=== PATIENT | male | born 1950 | race Caucasian/White ===

== ENCOUNTER 2018-04-08 20:25 | Emergency (ER) | payer OTHER, MEDICARE ==
[~2018-04-08] VITALS: Ht 172.7 cm; Wt 99.8 kg
[~2018-04-08 20:25] MED LIST: ESCI20TA PO; GABA-533 PO; GLUXR500 PO; HYDR25TA4 PO; LORA2TAB PO; LUBI24CA5 PO; MECL-110 PO; METO-442 PO; MORP15TA PO; OXCA600T5 PO; OXYC-133 PO
[2018-04-08 20:30] VITALS: BP_SYST 124
[2018-04-08] MEDS ORDERED: NACL 0.9% 1,000 ML IV ONE (21:00)
[2018-04-08] MEDS ORDERED: LORazepam 2 MG/ML VIAL (FOR ER USE) IVP ONE (21:00)
[2018-04-08 21:18] LABS: BASOPHILS # (AUTO) 0.2 K/uL (0.0-0.2); BASOPHILS % (AUTO) 1.4 % (0.0-2.0); EOSINOPHILS % (AUTO) 0.2 % (0.0-4.0); LYMPHOCYTES # (AUTO) 3.7 K/uL (1.0-5.5); LYMPHOCYTES % (AUTO) 20.9 % (20.5-51.5); MEAN CORPUSCULAR HEMOGLOBIN 30 pg (27-31); MEAN CORPUSCULAR HGB CONC 32 % (32-36); MEAN CORPUSCULAR VOLUME 94 fL (79.0-98.0); MONOCYTES # (AUTO) 0.5 K/uL (0.0-1.0); MONOCYTES % (AUTO) 2.9 % (1.7-9.3); NEUTROPHILS # (AUTO) 13.2 K/uL (1.8-7.7); NEUTROPHILS % (AUTO) 74.6 % (40.0-70.0); PLATELET COUNT (AUTO) 371 K/uL (130-430); RED BLOOD CELL COUNT(AUTO) 4.99 MIL/uL (4.2-6.2); RED CELL DISTRIBUTION WIDTH 13.7 % (9.0-15.0); WHITE BLOOD COUNT (AUTO) 17.6 K/uL (4.8-10.8)
[2018-04-08 21:26] LABS: CALCIUM 9.5 mg/dL (8.4-11.0); CREATININE 1.34 mg/dL (0.55-1.30); POTASSIUM 5.5 mmol/L (3.5-5.1)
[2018-04-08 21:30] LABS: ALBUMIN 4.3 g/dL (3.4-4.8); TOTAL BILIRUBIN 0.2 mg/dL (0.0-1.0)
[2018-04-08 23:15] VITALS: BP_SYST 124
== END 2018-04-08 23:15 | disposition home or self-care (01) ==
LOC: SED 20:25
DX: J20.9 Acute bronchitis, unspecified (principal); F10.239 Alcohol dependence with withdrawal, unspecified; J02.9 Acute pharyngitis, unspecified; R07.89 Other chest pain; E11.40 Type 2 diabetes mellitus with diabetic neuropathy, unspecified; I10 Essential (primary) hypertension; Z79.899 Other long term (current) drug therapy; Z87.01 Personal history of pneumonia (recurrent)
CPT/HCPCS: 36415; 71045; 80053; 85025; 87040; 96365; 96366; 96375; 99285; J1956; J2060

== ENCOUNTER 2018-05-25 13:52 | Inpatient (IN) | payer OTHER, MEDICARE ==
[~2018-05-25] VITALS: Ht 170.2 cm; Wt 93.0 kg
[2018-05-25 14:01] VITALS: BP_SYST 152
--- NOTE | 2018-05-25 14:10 | NUR ---
Placed in room 05 . Placed on engine monitor, blood pressure machine and pulse oximeter. To gown for exam. Side rails up.
--- NOTE | 2018-05-25 14:25 | NUR ---
Patient presents with son. Son states patient has had multiple falls possibly related to his ETOH intoxication. Patient has bruise to left flank that is indented in comparisson with surrounding tissue. Also has an abrasion to left forehead. Son did not witness a fall causing wither of these injuries. States he caught his father from falling several times over the past few days. States his father is on blood thinners, unk which kind or for what reason. Patient cannot recall his birthday, the president's name, or the date today. Dr Conteh made aware. IV started in left 5th area of hand, 22g. flushed. blood drawn by lab.
--- NOTE | 2018-05-25 14:30 | NUR ---
Dr Conteh at bedside to examine patient. CT HEAD, abdomen and pelvis, and CXR ordered.
--- NOTE | 2018-05-25 14:40 | NUR ---
Patient taken to CT via latha
[2018-05-25 14:48] LABS: MEAN CORPUSCULAR HGB CONC 33 % (32-36); PLATELET COUNT (AUTO) 421 K/uL (130-430)
[2018-05-25 14:54] LABS: BASOPHILS % (AUTO) 0.6 % (0.0-2.0); EOSINOPHILS % (AUTO) 0.2 % (0.0-4.0); MONOCYTES % (AUTO) 1.4 % (1.7-9.3); NEUTROPHILS % (AUTO) 81.8 % (40.0-70.0)
[2018-05-25 14:55] LABS: BASOPHILS # (AUTO) 0.1 K/uL (0.0-0.2); HEMOGLOBIN 16.3 g/dL (14.0-18.0); LYMPHOCYTES # (AUTO) 2.8 K/uL (1.0-5.5); MEAN CORPUSCULAR HEMOGLOBIN 30 pg (27-31); MEAN CORPUSCULAR VOLUME 92 fL (79.0-98.0); MONOCYTES # (AUTO) 0.2 K/uL (0.0-1.0); NEUTROPHILS # (AUTO) 14.5 K/uL (1.8-7.7); RED BLOOD CELL COUNT(AUTO) 5.41 MIL/uL (4.2-6.2); WHITE BLOOD COUNT (AUTO) 17.6 K/uL (4.8-10.8)
[2018-05-25 14:56] LABS: RED CELL DISTRIBUTION WIDTH 13.6 % (9.0-15.0)
[2018-05-25 14:59] LABS: ANION GAP 20 (5-15); CALCIUM 10.1 mg/dL (8.4-11.0); CHLORIDE 98 mmol/L (98-107); CREATININE 1.24 mg/dL (0.55-1.30); GLUCOSE 108 mg/dL (70-99); POTASSIUM 4.9 mmol/L (3.5-5.1); SODIUM SERUM 138 mmol/L (136-145); UREA NITROGEN, BLOOD 25 mg/dL (8-21)
--- NOTE | 2018-05-25 14:59 | NUR ---
patient returned from CT placed back in his room.
[2018-05-25 15:06] LABS: PROTHROMBIN TIME 10.3 SECS (9.5-12.5)
[2018-05-25 15:07] LABS: GFR AFRICAN AMERICAN 75 mL/min (>90)
[2018-05-25 15:08] LABS: ALANINE AMINOTRANSFERASE 47 U/L (12-78); ALBUMIN 4.6 g/dL (3.4-4.8); ALCOHOL, BLOOD 240 mg/dL (<10); ASPARTATE AMINOTRANSFERASE 35 U/L (10-37); TOTAL BILIRUBIN 0.2 mg/dL (0.0-1.0)
[2018-05-25] MEDS ORDERED: NS 500 ML IV ONE (15:15)
[2018-05-25] MEDS ORDERED: DIPHENHYDRAMINE INJ 50 MG/ML VIAL IVP ONE (15:15)
[2018-05-25] MEDS ORDERED: ONDANSETRON HCL 4 MG/2 ML VIAL IVP ONE (15:15)
[2018-05-25] MEDS ORDERED: LORazepam 2 MG/ML VIAL (FOR ER USE) IVP ONE (16:00)
[2018-05-25] MEDS ORDERED: cefTRIAXone 1 GM IVPB PREMIX 50 ML IV ONE (16:00)
--- NOTE | 2018-05-25 16:46 | NUR ---
# 16 FR Cantu catheter with use of sterile technique. Immediate return of 10 cc clear yellow urine noted. Bedside drainage bag placed below level of bladder. Urine sample collected and sent to lab. Pt tolerated procedure well. Patient unable to follow direction and unable toilet self.
[2018-05-25] MEDS: cefTRIAXone 1 GM IVPB PREMIX 50 ML IV SCH (17:00)
--- NOTE | 2018-05-25 17:04 | NUR ---
Patient will be admitted to care of [facility]. Admitted to Tele unit to room 132A. Belongings list completed. Summary report printed. Report given at bedside.
[2018-05-25 17:11] LABS: BARBITURATE, URINE NEGATIVE (NEG <=200); BENZODIAZEPINE, URINE NEGATIVE (NEG <=150); CANNABINOID, URINE NEGATIVE (NEG <=50); COCAINE, URINE NEGATIVE (NEG <=150); METHAMPHETAMINES SCREEN,URINE NEGATIVE (NEG <=500); OPIATE, URINE NEGATIVE (NEG <=100); PHENCYCLIDINE SCREEN,URINE NEGATIVE (NEG <=25); UR TRICYCLIC ANTIDEPRESSANTS NEGATIVE (NEG <=300); URINE AMPHETAMINE NEGATIVE (NEG <=500); URINE METHADONE NEGATIVE (NEG <=200); URINE OXYCODONE SCREEN NEGATIVE (NEG <=100); URINE PROPOXYPHENE SCREEN NEGATIVE (NEG <=300)
--- NOTE | 2018-05-25 17:13 | NUR ---
ADMISSION NOTE Received patient from ER via latha.Report received form Demetrice ER nurse. Patient admitted with diagnosis of pyelonephritis. Patient is currently drowsy. Patient oriented to hospital room, call light, toileting, pain management and safety-teach back done. Patient informed that Abbi will be his nurse and that their room number is 132-c. Personal belongings checked and Belongings List documented. Call light within reach.
[2018-05-25] MEDS: NACL 0.9% 1,000 ML IV SCH (17:28)
[2018-05-25 17:33] LABS: BILIRUBIN,URINE NEGATIVE (NEGATIVE); BLOOD, URINE NEGATIVE (NEGATIVE); CLARITY/URINE CLEAR (CLEAR); COLOR,URINE YELLOW (YELLOW); GLUCOSE,URINE NEGATIVE (NEGATIVE); KETONES,URINE 1+ (NEGATIVE); LEUKOCYTE ESTERASE ,URINE NEGATIVE (NEGATIVE); NITRITE, URINE NEGATIVE (NEGATIVE); PH,URINE 5.5 (5.0-8.0); PROTEIN URINE 1+ (NEGATIVE); UROBILINOGEN,URINE 0.2 (0.2-1.0)
--- NOTE | 2018-05-25 17:40 | NUR ---
Sepsis Protocol Note Spoke with Dr. Velazquez. Made MD aware of patient's current vital signs and labs: (164/106, 135, 100.1, 24, 95% RA), first lactic acid 6.8, WBC 17.6. MD ordered and extra bolus of 2.5 liters. Orders for Ativan 2mg and Librium 25 mg were also received at this time.
[2018-05-25 17:44] LABS: BACTERIA,URINE FEW /HPF (None Seen); RBC,URINE 0-3 /HPF (0-3); WBC,URINE 0-3 /HPF (0-3)
[2018-05-25] MEDS ORDERED: SUCR1TAB78 PO (17:45)
[2018-05-25] MEDS ORDERED: GLU500 PO (17:45)
[2018-05-25] MEDS ORDERED: OMEP20CA10 PO (17:45)
[2018-05-25] MEDS ORDERED: DULO60CA41 PO (17:45)
[2018-05-25] MEDS ORDERED: ASA81 PO (17:45)
[2018-05-25] MEDS ORDERED: ROSU10TA PO (17:45)
[2018-05-25] MEDS ORDERED: LOSA25TA3 PO (17:45)
[2018-05-25] MEDS ORDERED: GABA800T PO (17:45)
[2018-05-25] MEDS ORDERED: METO25TA3 PO (17:45)
[2018-05-25] MEDS ORDERED: BACL10TA PO (17:45)
[2018-05-25 17:49] VITALS: BP_SYST 131
[2018-05-25] MEDS ORDERED: LORazepam 2 MG/ML VIAL IVP PRN (18:00)
[2018-05-25] MEDS ORDERED: DEXTROSE 50% JECT 50 ML DISP.SYRIN IVP PRN (18:00)
[2018-05-25] MEDS ORDERED: MUPIROCIN 2% TOPICAL OINTMENT 22 GM NS PRN (18:00)
[2018-05-25] MEDS ORDERED: MAGNESIUM SULFATE 50 ML IV PRN (18:00)
[2018-05-25] MEDS ORDERED: DOCUSATE SODIUM 100 MG CAPSULE PO PRN (18:00)
[2018-05-25] MEDS ORDERED: POTASSIUM CHLORIDE 20 MEQ TAB.PRT.SR PO PRN (18:00)
[2018-05-25] MEDS ORDERED: ACETAMINOPHEN 325 MG TABLET PO PRN (18:00)
[2018-05-25] MEDS ORDERED: ONDANSETRON HCL 4 MG/2 ML VIAL IVP PRN (18:00)
[2018-05-25] MEDS ORDERED: INSULIN ASPART 100 UNITS/ML, 10 ML VIAL (NovoLOG) SUBCUT PRN (18:00)
[2018-05-25] MEDS ORDERED: LORazepam 2 MG/ML VIAL ONE (18:05)
[2018-05-25] MEDS ORDERED: NACL 0.9% 1,000 ML IV ONE (18:15)
[2018-05-25] MEDS ORDERED: METOPROLOL TARTRATE 25 MG TABLET ONE (18:27)
--- NOTE | 2018-05-25 18:32 | NUR ---
CONSULTATION PAGED/CALLED Reason for Consultation: Tachycardia Person Who was Notified: Iris Consulting Physician: Dr. Dubois Video Camera Operator Specialty: Cardio Ordering Physician: Dr. Velazquez
--- NOTE | 2018-05-25 18:50 | NUR ---
Sepsis Protocol/ Closing Note Patient is currently receiving a second bolus of NS. Endorsed to Valdemar RN to do sepsis reassessment. Patient is currently awake and confused. Bed alarm is in place and bed is in low position.
[2018-05-25] MEDS ORDERED: NACL 0.9% 2,000 ML IV SCH (19:00)
[2018-05-25] MEDS ORDERED: NS 500 ML IV SCH (19:00)
--- NOTE | 2018-05-25 19:35 | NUR ---
ROUNDS PATIENT RESTING COMFORTABLY IN BED, NOT IN DISTRESS, VITALS STABLE. DENIES ANY PAIN AND DISCOMFORT AT THIS TIME. ASSESSMENT DONE AND DOCUMENTED. SEE FLOWSHEET. NEEDS ATTENDED TO. SAFETY AND FALL PRECAUTION MEASURES IN PLACED. BED IN LOW AND LOCKED POSITION. CALL LIGHT PLACED WITHIN REACH.
[2018-05-25] MEDS: BACLOFEN 10 MG TABLET PO SCH (20:04)
[2018-05-25] MEDS: chlordiazePOXIDE HCL 25 MG CAPSULE PO SCH (20:04)
[2018-05-25] MEDS: METOPROLOL TARTRATE 25 MG TABLET PO SCH (20:06)
[2018-05-25] MEDS: HEPARIN SODIUM,PORCINE 5000 UNITS/ML VIAL SUBCUT SCH (20:08)
[2018-05-25] MEDS ORDERED: GABAPENTIN 400 MG CAPSULE PO SCH (21:00)
[2018-05-25 21:06] VITALS: BP_SYST 143
--- NOTE | 2018-05-25 21:15 | NUR ---
MEDICATION DUE MEDICATIONS GIVEN ORDERED, TOLERATED WELL. WILL CONTINUE TO MONITOR.
--- NOTE | 2018-05-26 00:10 | NUR ---
PATIENT RESTING: Patient resting quietly. No acute distress noted. Vital signs within normal range.
[2018-05-26] MEDS: NACL 0.9% 1,000 ML IV SCH ×3 (00:15→17:28)
[2018-05-26 00:18] VITALS: BP_SYST 144
--- NOTE | 2018-05-26 02:15 | NUR ---
ROUNDS PATIENT ASLEEP, VITALS STABLE, WILL CONTINUE TO MONITOR.
--- NOTE | 2018-05-26 04:15 | NUR ---
PATIENT RESTING: Patient resting quietly. No acute distress noted. Vital signs within normal range.
[2018-05-26 04:46] VITALS: BP_SYST 103
[2018-05-26 06:25] LABS: BASOPHILS # (AUTO) 0.1 K/uL (0.0-0.2); EOSINOPHILS % (AUTO) 0.4 % (0.0-4.0); HEMOGLOBIN 11.4 g/dL (14.0-18.0); LYMPHOCYTES # (AUTO) 2.3 K/uL (1.0-5.5); LYMPHOCYTES % (AUTO) 25.2 % (20.5-51.5); MEAN CORPUSCULAR HEMOGLOBIN 32 pg (27-31); MEAN CORPUSCULAR HGB CONC 34 % (32-36); MEAN CORPUSCULAR VOLUME 94 fL (79.0-98.0); MONOCYTES # (AUTO) 0.8 K/uL (0.0-1.0); MONOCYTES % (AUTO) 8.9 % (1.7-9.3); NEUTROPHILS % (AUTO) 64.5 % (40.0-70.0); PLATELET COUNT (AUTO) 261 K/uL (130-430); WHITE BLOOD COUNT (AUTO) 9.2 K/uL (4.8-10.8)
--- NOTE | 2018-05-26 06:50 | NUR ---
CLOSING NOTES PATIENT AWAKE, VITALS STABLE, DENIES ANY PAIN AND DISCOMFORT AT THIS TIME. ALL NEEDS ATTENDED TO. SAFETY AND FALL PRECAUTION MEASURES MAINTAINED. CALL LIGHT PLACED WITHIN REACH.
[2018-05-26 06:54] LABS: CALCIUM 8.4 mg/dL (8.4-11.0); CREATININE 0.81 mg/dL (0.55-1.30); POTASSIUM 4.1 mmol/L (3.5-5.1)
--- NOTE | 2018-05-26 07:50 | NUR ---
opening note patient is resting in bed, A&Ox4, patient shows some confusion will continue to monitor, assessment completed, educated correspondence school instructor light system and on pain management, patient verbalized understanding, no other needs at this time, bed at the lowest position, bed alarm on, two side rails up with seizure precautions, call light within reach, bed close to nurse station, fall and aspiration precautions in place.
--- NOTE | 2018-05-26 08:00 | NUR ---
Dr. Velazquez rounds assessed patient at bedside, will follow up with any new orders.
[2018-05-26] MEDS ORDERED: metFORMIN HCL 500 MG TABLET PO SCH (09:00)
[2018-05-26] MEDS: ASPIRIN 81 MG TAB.CHEW PO SCH (09:02)
[2018-05-26] MEDS: GABAPENTIN 300 MG CAPSULE PO SCH ×3 (09:03→20:26)
[2018-05-26] MEDS: BACLOFEN 10 MG TABLET PO SCH ×2 (09:03→20:26)
[2018-05-26] MEDS: LOSARTAN POTASSIUM 25 MG TABLET PO SCH (09:03)
[2018-05-26] MEDS: METOPROLOL TARTRATE 25 MG TABLET PO SCH ×2 (09:04→20:26)
[2018-05-26] MEDS: DULoxetine HCL 30 MG CAPSULE.DR (CYMBALTA) PO SCH (09:04)
[2018-05-26] MEDS: chlordiazePOXIDE HCL 25 MG CAPSULE PO SCH ×3 (09:05→20:26)
--- NOTE | 2018-05-26 09:05 | NUR ---
Medication patient is resting in bed, educated on medication use and side effects, patient verbalized understanding and tolerated well, no other needs at this time, bed at the lowest position, bed alarm on, two side rails up with seizure precautions, call light within reach, bed close to nurse station, fall and aspiration precautions in place.
[2018-05-26] MEDS: HEPARIN SODIUM,PORCINE 5000 UNITS/ML VIAL SUBCUT SCH ×2 (09:07→20:22)
[2018-05-26] MEDS: MORPHINE 2 MG/ML INJ. SYRINGE IVP PRN ×2 (09:39→20:25)
--- NOTE | 2018-05-26 09:51 | NUR ---
Dr. Dubois rounds assessed patient at bedside, will follow up with any new orders.
--- NOTE | 2018-05-26 10:44 | NUR ---
Echocardiogram being performed at bedside, patient is tolerating well.
[2018-05-26 10:59] LABS: CHOLESTEROL 195 mg/dL (<200); HDL CHOLESTEROL 39 mg/dL (>45); LDL CHOLESTEROL 103 mg/dL (<100); TRIGLYCERIDES 375 mg/dL (30-150)
--- NOTE | 2018-05-26 11:11 | NUR ---
Blood sugar check patient is resting in bed, blood sugar was 104 no regular insulin sliding scale needed at this time, patient verbalized understanding, no other needs at this time, bed at the lowest position, bed alarm on, two side rails up with seizure precautions, call light within reach, bed close to nurse station, fall and aspiration precautions in place.
[2018-05-26 11:16] VITALS: BP_SYST 158
[2018-05-26 12:02] VITALS: BP_SYST 139
--- NOTE | 2018-05-26 12:44 | NUR ---
IV fluids patient is resting in bed, changed IV fluid bag, IV line patent and intact, no other needs at this time, bed at the lowest position, bed alarm on, call light within reach, two side rails up with seizure precautions, bed close to nurse station, fall and aspiration precautions in place.
--- NOTE | 2018-05-26 14:30 | NUR ---
Medication patient is resting in bed, educated on medication uses and side effects, patient verbalized understanding and tolerated well, no other needs at this time, bed at the lowest position, bed alarm on , two side rails up, call light within reach, fall and aspiration precautions in place.
[2018-05-26 16:02] VITALS: BP_SYST 143
[2018-05-26] MEDS: cefTRIAXone 1 GM IVPB PREMIX 50 ML IV SCH (17:22)
--- NOTE | 2018-05-26 17:22 | NUR ---
blood sugar check patient is resting in bed, blood sugar was 110, no sliding scale insulin needed, no other needs at this time, bed at the lowest position, bed alarm on , two side rails up, call light within reach, fall and aspiration precautions in place.
--- NOTE | 2018-05-26 18:51 | NUR ---
closing note patient is resting in bed with his eyes closed, breathing easy and non-labored, all needs met for the shift, will endorse report to noc shift nurse, bed at the lowest position, bed alarm on , two side rails up with seizure precautions, call light within reach, bed close to nurse station, fall and aspiration precautions in place.
[2018-05-26 19:18] VITALS: BP_SYST 137
--- NOTE | 2018-05-26 19:18 | NUR ---
Opening Note Received bedside sbar report from dayshift RN. Patient is awake/alert/oriented, watching tv. No acute distress noted at this time. IV site noted to LH20G, saline locked and R wrist 20G, infusing NS @ 80ml/hr as ordered. No signs of redness of infiltration. Introduced myself, updated whiteboard, discussed plan of care, bed alarm activated. Bed to lowest position, 3 side rails up, call light within reach, bed alarm activated. Seizure precautions in place. Will continue to monitor patient.
--- NOTE | 2018-05-26 20:25 | NUR ---
Pain Medication Patient complains of 7/10 chronic back pain. Administered Morphine 2mg as ordered for severe pain. Will follow up to ensure effective pain management.
[2018-05-26] MEDS: ZOLPIDEM TARTRATE 5 MG TABLET PO PRN (20:26)
--- NOTE | 2018-05-26 20:34 | NUR ---
Blood Glucose : 146 (No correction needed per physician ordered sliding scale) Educated patient on signs/symptoms of hypoglycemia.
--- NOTE | 2018-05-26 22:52 | NUR ---
Rounds Patient is resting, eyes closed with no distress noted. No shortness of breath and no labored breathing. IV site is clean/dry/intact with no signs of infiltration. Bed to lowest position, 3 side rails up, call light within reach, bed alarm activated. Will continue to monitor patient.
[2018-05-27 00:47] VITALS: BP_SYST 113
--- NOTE | 2018-05-27 01:58 | NUR ---
Rounds Patient is resting comfortably with no distress noted. Respirations are equal/non-labored @ 16/min. IV site is clean/dry/intact and infusing NS @ 80ml/hr as ordered with no signs of infiltration. Bed to lowest position, 3 side rails up, call light within reach, bed alarm activated. Will continue to monitor patient.
--- NOTE | 2018-05-27 03:41 | NUR ---
Rounds Patient is still resting with his eyes closed and no acute distress is noted at this time. Respirations are non-labored and equal: 18/min. IV site is clean/dry/intact and infusing NS @ 80ml/hr as ordered with no signs of redness or infiltration at this time. Bed to lowest position, 3 side rails up, call light within reach, bed alarm activated. Will continue to monitor patient.
--- NOTE | 2018-05-27 05:21 | NUR ---
Rounds Patient is in bed, eyes closed and is easily arousable. Symmetric rise and fall of chest with respirations @ 18/min. IV site is clean/dry/intact and infusing NS @ 80ml/hr as ordered with no signs of redness or infiltration at this time. Bed to lowest position, 3 side rails up, call light within reach, bed alarm activated. Will continue to monitor patient.
--- NOTE | 2018-05-27 05:30 | NUR ---
radio tower technician currently in with patient.
[2018-05-27] MEDS: NACL 0.9% 1,000 ML IV SCH ×2 (06:02→13:26)
--- NOTE | 2018-05-27 06:06 | NUR ---
Blood Glucose : 104 (No correction needed per physician ordered sliding scale) Educated patient on signs/symptoms of hypoglycemia.
[2018-05-27 06:57] LABS: BASOPHILS % (AUTO) 0.6 % (0.0-2.0); EOSINOPHILS # (AUTO) 0.1 K/uL (0.0-0.4); EOSINOPHILS % (AUTO) 1.8 % (0.0-4.0); HEMATOCRIT 35.8 % (36-54); HEMOGLOBIN 11.9 g/dL (14.0-18.0); LYMPHOCYTES # (AUTO) 1.9 K/uL (1.0-5.5); LYMPHOCYTES % (AUTO) 27.6 % (20.5-51.5); MEAN CORPUSCULAR HEMOGLOBIN 31 pg (27-31); MEAN CORPUSCULAR HGB CONC 33 % (32-36); MEAN CORPUSCULAR VOLUME 94 fL (79.0-98.0); MONOCYTES # (AUTO) 0.4 K/uL (0.0-1.0); MONOCYTES % (AUTO) 6.6 % (1.7-9.3); NEUTROPHILS # (AUTO) 4.3 K/uL (1.8-7.7); NEUTROPHILS % (AUTO) 63.4 % (40.0-70.0); PLATELET COUNT (AUTO) 220 K/uL (130-430); RED BLOOD CELL COUNT(AUTO) 3.82 MIL/uL (4.2-6.2); RED CELL DISTRIBUTION WIDTH 12.9 % (9.0-15.0); WHITE BLOOD COUNT (AUTO) 6.7 K/uL (4.8-10.8)
--- NOTE | 2018-05-27 07:25 | NUR ---
Closing Note Gave bedside sbar report to dayshift RNErick Patient is awake/alert/oriented, using urinal. No distress noted at this time. All needs/expectations/interventions met by nightshift RN. Transfer of care successful.
[2018-05-27 07:26] LABS: CALCIUM 9.1 mg/dL (8.4-11.0); CREATININE 0.71 mg/dL (0.55-1.30); POTASSIUM 3.7 mmol/L (3.5-5.1)
[2018-05-27 07:30] VITALS: BP_SYST 147
[2018-05-27] MEDS: chlordiazePOXIDE HCL 25 MG CAPSULE PO SCH ×3 (08:32→20:11)
[2018-05-27] MEDS: GABAPENTIN 300 MG CAPSULE PO SCH ×3 (08:32→20:11)
[2018-05-27] MEDS: ASPIRIN 81 MG TAB.CHEW PO SCH (08:32)
[2018-05-27] MEDS: DULoxetine HCL 30 MG CAPSULE.DR (CYMBALTA) PO SCH (08:33)
[2018-05-27] MEDS: BACLOFEN 10 MG TABLET PO SCH ×2 (08:33→20:12)
[2018-05-27] MEDS: LOSARTAN POTASSIUM 25 MG TABLET PO SCH (08:33)
[2018-05-27] MEDS: METOPROLOL TARTRATE 25 MG TABLET PO SCH ×2 (08:33→20:11)
[2018-05-27] MEDS: MORPHINE 2 MG/ML INJ. SYRINGE IVP PRN ×3 (08:35→20:13)
[2018-05-27] MEDS: HEPARIN SODIUM,PORCINE 5000 UNITS/ML VIAL SUBCUT SCH ×2 (08:39→20:09)
--- NOTE | 2018-05-27 08:42 | NUR ---
AM NOTES Patient laying in bed awake, alert, orientedx4. No s/s of acute distress or SOB. Right and left 20g IV sites patent, intact, dressings are dry. Patient oriented to room routine, bed in lowest position, call light within reach. Seizure precautions in place.
[2018-05-27 11:39] VITALS: BP_SYST 142
--- NOTE | 2018-05-27 11:43 | NUR ---
Physical Therapy at the bedside, patient is tolerating well, patient ambulating with walker.
--- NOTE | 2018-05-27 13:38 | NUR ---
RN rounds/Pain medication patient resting in bed, IV pump alarming, replaced IVF bag, IV intact, patent and infusing well, inquired of patient if he has pain, patient complaining of lower back, educated the patient on pain medication uses and potential side effects, he verbalized understanding, no other needs at this time, bed in lowest position, three side rails up, bed alarm on, bed close to nursing station, fall, aspiration and seizure precautions in place. Addendum: 05/27/18 at 1347 by Erick Hanson RN Call light within reach.
--- NOTE | 2018-05-27 15:38 | NUR ---
RN rounds patient resting in bed, awake, denies pain, stable condition, continuing to monitor, bed in lowest position, three side rails up, bed alarm on, call light within reach, fall, seizure and aspiration precautions in place, provided with juice upon request, no other needs at this time, continuing to monitor.
[2018-05-27 16:12] VITALS: BP_SYST 138
[2018-05-27] MEDS: cefTRIAXone 1 GM IVPB PREMIX 50 ML IV SCH (16:47)
--- NOTE | 2018-05-27 17:00 | NUR ---
MEDICATION ADMINISTRATION Accucheck 137, no correction needed per physician ordered sliding scale. IVPB Rocephin hung, Right 20g IV site patent, intact, dressing is dry.
--- NOTE | 2018-05-27 18:34 | NUR ---
CLOSING NOTES Patient is awake, alert, laying in bed resting. No s/s of distress or SOB noted. No pain reported. All needs met throughout shift. Safety, fall, and seizure precautions maintained. Right 20g and left 20g IV sites patent, intact, dressing is dry. Bed in lowest position, call light within reach. Will endorse to oncoming RN.
[2018-05-27 19:17] VITALS: BP_SYST 132
--- NOTE | 2018-05-27 19:17 | NUR ---
Opening Note Received bedside sbar report from Erick robles RN. Patient is awake/alert/oriented, watching tv. No acute distress noted at this time. IV site noted to LH20G, saline locked and R wrist 20G, infusing NS @ 80ml/hr as ordered. No signs of redness of infiltration. Introduced myself, updated whiteboard, discussed plan of care, bed alarm activated. Bed to lowest position, 3 side rails up, call light within reach, bed alarm activated. Seizure precautions in place. Will continue to monitor patient.
[2018-05-27] MEDS: ZOLPIDEM TARTRATE 5 MG TABLET PO PRN (20:12)
--- NOTE | 2018-05-27 20:13 | NUR ---
Pain Medication Patient complains of 7/10 chronic back pain. Administered Morphine 2mg as ordered for severe pain. Will follow up to ensure effective pain management.
--- NOTE | 2018-05-27 20:20 | NUR ---
Blood Glucose : 104 (No correction needed per physician ordered sliding scale) Educated patient on signs/symptoms of hypoglycemia.
--- NOTE | 2018-05-27 22:11 | NUR ---
Patient attempting to get out of bed. He wants to take a walk. Educated patient on high fall risk factor regarding diagnosis and medications administered. He agreed, pushed patient via walker for a few laps around hospital floor while EARLY CHILDHOOD EDUCATION WORKER changed linens. Assisted patient safely back to bed. Will continue to monitor patient.
[2018-05-28 01:46] VITALS: BP_SYST 137
--- NOTE | 2018-05-28 02:21 | NUR ---
Patient has gotten out of bed and turned off bed alarm. Escorted patient safely back to bed and educated on his high fall risk status. He does not answer then turns over and begins snoring. Unsure if patient is sleep walking. Will continue to monitor patient.
--- NOTE | 2018-05-28 04:14 | NUR ---
IV site to left hand has been dislodged. Verified that catheter tip is fully intact.
[2018-05-28] MEDS: NACL 0.9% 1,000 ML IV SCH ×2 (05:45→20:00)
--- NOTE | 2018-05-28 05:54 | NUR ---
Blood Glucose : 112 (No correction needed per physician ordered sliding scale) Educated patient on signs/symptoms of hypoglycemia.
--- NOTE | 2018-05-28 07:09 | NUR ---
Closing Note Patient is resting No distress noted at this time. All needs/expectations/interventions met by nightshift RN. Transfer of care successful.
[2018-05-28 07:11] LABS: EOSINOPHILS # (AUTO) 0.4 K/uL (0.0-0.4); MEAN CORPUSCULAR HGB CONC 33 % (32-36); MONOCYTES # (AUTO) 0.4 K/uL (0.0-1.0); WHITE BLOOD COUNT (AUTO) 6.8 K/uL (4.8-10.8)
--- NOTE | 2018-05-28 07:47 | NUR ---
Nutrition Update Óscar Scale 16 noted. Pt admitted for pyelonephritis Diet: [facility] BMI: 33.5 kg/m2 RD to follow per nutrition care standards.
[2018-05-28 07:51] LABS: CREATININE 0.78 mg/dL (0.55-1.30)
[2018-05-28 07:54] LABS: BASOPHILS % (AUTO) 0.4 % (0.0-2.0); EOSINOPHILS % (AUTO) 5.7 % (0.0-4.0); HEMATOCRIT 35.6 % (36-54); HEMOGLOBIN 11.8 g/dL (14.0-18.0); LYMPHOCYTES % (AUTO) 30.1 % (20.5-51.5); MEAN CORPUSCULAR HEMOGLOBIN 31 pg (27-31); MEAN CORPUSCULAR VOLUME 95 fL (79.0-98.0); MONOCYTES % (AUTO) 6.4 % (1.7-9.3); NEUTROPHILS % (AUTO) 57.4 % (40.0-70.0); PLATELET COUNT (AUTO) 202 K/uL (130-430); RED BLOOD CELL COUNT(AUTO) 3.76 MIL/uL (4.2-6.2); RED CELL DISTRIBUTION WIDTH 12.9 % (9.0-15.0)
[2018-05-28 08:00] VITALS: BP_SYST 142
--- NOTE | 2018-05-28 08:00 | NUR ---
RN OPENING NOTE patient is resting on bed, open eyes. denies pain or discomfort. patient was assessed, vital signs are stable. will give the patient his blood pressure med. patient's bed at low positions and call light within reach, bed alarm is on, will continue to monitor.
[2018-05-28 08:16] LABS: POTASSIUM 4.3 mmol/L (3.5-5.1)
[2018-05-28] MEDS: DULoxetine HCL 30 MG CAPSULE.DR (CYMBALTA) PO SCH (08:29)
[2018-05-28] MEDS: ASPIRIN 81 MG TAB.CHEW PO SCH (08:29)
[2018-05-28] MEDS: GABAPENTIN 300 MG CAPSULE PO SCH ×3 (08:29→20:49)
[2018-05-28] MEDS: BACLOFEN 10 MG TABLET PO SCH ×2 (08:29→20:47)
[2018-05-28] MEDS: LOSARTAN POTASSIUM 25 MG TABLET PO SCH (08:30)
[2018-05-28] MEDS: chlordiazePOXIDE HCL 25 MG CAPSULE PO SCH ×3 (08:31→20:47)
[2018-05-28] MEDS: METOPROLOL TARTRATE 25 MG TABLET PO SCH ×2 (08:31→20:48)
[2018-05-28] MEDS: HEPARIN SODIUM,PORCINE 5000 UNITS/ML VIAL SUBCUT SCH ×2 (08:34→20:51)
--- NOTE | 2018-05-28 10:00 | NUR ---
RN NOTE patient was given his medication, patient was educated about fall prevention and his disease process.patient verbalized understanding, patient denies pain or discomfort. call light within reach and bed alarm is on. bed at low position, will continue to monitor.
--- NOTE | 2018-05-28 12:00 | NUR ---
RN NOTE patient resting on bed, denies pain or discomfort. patient blood sugar was measured to be 122 mg/dl. patient was given no coverage according to the sliding scale. patient was served his lunch. will continue to monitor.
[2018-05-28 12:05] VITALS: BP_SYST 151
[2018-05-28] MEDS: MORPHINE 2 MG/ML INJ. SYRINGE IVP PRN (13:43)
--- NOTE | 2018-05-28 14:00 | NUR ---
RN NOTE patient was downgraded to Med Surg. his tele box was removed cleaned and patient was complaining of pain in his lower legs arms and lower back due to his fibromyalgia, patient was given his prn morphine sulfate. will continue to monitor.
[2018-05-28] MEDS ORDERED: MORPHINE 4 MG/ML INJ. SYRINGE IVP PRN (14:58)
--- NOTE | 2018-05-28 15:04 | NUR ---
DC Planning: Per Dr Varela who spoke with pt. about discharging pt. to snf. The pt. refused but agreed with home health f/u care. The md. requested [facility] for continued iv Rocephin infusion for 3 more days. >> s/w Karolyn at [facility]# [phone], stated unable to accept the pt. dt no nurse to infuse IV abx. Dr Varela made aware.
--- NOTE | 2018-05-28 16:00 | NUR ---
RN NOTE patient resting on bed, alert oriented x 4, patient was visited by his family, patient denies pain or discomfort. patient was educated about his disease process and seizure precautions. patient verbalized understanding, will continue to monitor.
[2018-05-28 16:39] VITALS: BP_SYST 140
[2018-05-28] MEDS: cefTRIAXone 1 GM IVPB PREMIX 50 ML IV SCH (17:14)
--- NOTE | 2018-05-28 18:00 | NUR ---
RN CLOSING NOTE patient resting on bed, patient blood sugar was measured to be 103 mg/dl, patient got no coverage as per the sliding scale. patient denies pain or discomfort. family members left home already,patient was served his dinner, helped with his urinal. patient was given his ivpb of Rocephin. will continue to monitor and will endorse to next shift.
--- NOTE | 2018-05-28 19:05 | NUR ---
Opening Note Received patient in bed awake, resting and watching TV. AAOx4 and able to verbalize needs. IV on the right wrist 20g, infusing NS at 80ml/hr. IV site clean and intact with no s/s of infiltration or infection. Seizure precautions in place. Lungs and heart sounds wnl. Active bowel sounds. Patient is able to ambulate with assistance. No complaints of pain or respiratory distress at this time. Patient on JENNIFER and seizure, fall precautions. Call light placed within reach and safety precautions in place. Will monitor for any change of condition.
[2018-05-28 20:00] VITALS: BP_SYST 154
--- NOTE | 2018-05-28 20:56 | NUR ---
Blood Glucose 119. No coverage needed.
[2018-05-28] MEDS: ZOLPIDEM TARTRATE 5 MG TABLET PO PRN (20:59)
--- NOTE | 2018-05-28 22:06 | NUR ---
Patient in bed asleep with audible breath sound heard. No apparent distress or sign of pain noted. Call light within reach and safety precautions being observed.
[2018-05-28] MEDS: MORPHINE 4 MG/ML INJ. SYRINGE IVP PRN (22:54)
[2018-05-29] VITALS: BP_SYST 129
--- NOTE | 2018-05-29 00:29 | NUR ---
Patient in bed watching TV. States pain at 5/10 but tolerable and will wait for next available pain medication when available. No respiratory distress. call light within reach.
--- NOTE | 2018-05-29 02:18 | NUR ---
Patient in bed resting. Awake to use the urinal and went back to sleep.
--- NOTE | 2018-05-29 04:16 | NUR ---
Patient in bed asleep with visualized rise and fall of chest. No appearance of pain or respiratory distress. Call light within reach.
[2018-05-29] MEDS: NACL 0.9% 1,000 ML IV SCH (05:31)
--- NOTE | 2018-05-29 06:44 | NUR ---
Blood Glucose 114, No coverage needed.
--- NOTE | 2018-05-29 06:45 | NUR ---
Closing notes Patient in bed asleep. Was watching TV approximately 15min ago. AAOx4, stated he'll go back to sleep until breakfast arrives. No additional pain medication requested and no respiratory distress. IV infusing NS at 80 ml/hr with no infiltration. All needs have been met and safety precautions in place. Will endorse plan of care to oncoming nurse.
[2018-05-29 06:50] LABS: BASOPHILS % (AUTO) 0.7 % (0.0-2.0); EOSINOPHILS # (AUTO) 0.4 K/uL (0.0-0.4); EOSINOPHILS % (AUTO) 5.2 % (0.0-4.0); HEMATOCRIT 35.1 % (36-54); HEMOGLOBIN 11.8 g/dL (14.0-18.0); LYMPHOCYTES % (AUTO) 28.8 % (20.5-51.5); MEAN CORPUSCULAR HEMOGLOBIN 31 pg (27-31); MEAN CORPUSCULAR HGB CONC 34 % (32-36); MEAN CORPUSCULAR VOLUME 93 fL (79.0-98.0); MONOCYTES # (AUTO) 0.4 K/uL (0.0-1.0); MONOCYTES % (AUTO) 6.1 % (1.7-9.3); NEUTROPHILS % (AUTO) 59.2 % (40.0-70.0); PLATELET COUNT (AUTO) 227 K/uL (130-430); RED BLOOD CELL COUNT(AUTO) 3.77 MIL/uL (4.2-6.2); WHITE BLOOD COUNT (AUTO) 6.9 K/uL (4.8-10.8)
[2018-05-29 07:12] LABS: CALCIUM 9.4 mg/dL (8.4-11.0); CREATININE 0.8 mg/dL (0.55-1.30); POTASSIUM 3.7 mmol/L (3.5-5.1)
--- NOTE | 2018-05-29 07:45 | NUR ---
Opening Note patient received resting in bed, patient is arousable to name but sleeping at this time, NS is infusing at 80ml/hr with no signs of infiltration, seizure precautions observed, safety precautions observed, educated patient on plan of care and call light system, no signs of distress or pain is noted at this time, will continue to monitor, call light within reach, bed alarm on.
[2018-05-29 08:00] VITALS: BP_SYST 154
[2018-05-29] MEDS: BACLOFEN 10 MG TABLET PO SCH (08:37)
[2018-05-29] MEDS: DULoxetine HCL 30 MG CAPSULE.DR (CYMBALTA) PO SCH (08:37)
[2018-05-29] MEDS: LOSARTAN POTASSIUM 25 MG TABLET PO SCH (08:37)
[2018-05-29] MEDS: ASPIRIN 81 MG TAB.CHEW PO SCH (08:37)
[2018-05-29] MEDS: GABAPENTIN 300 MG CAPSULE PO SCH ×2 (08:38→14:54)
[2018-05-29] MEDS: chlordiazePOXIDE HCL 25 MG CAPSULE PO SCH (08:38)
[2018-05-29] MEDS: METOPROLOL TARTRATE 25 MG TABLET PO SCH (08:38)
[2018-05-29] MEDS: HEPARIN SODIUM,PORCINE 5000 UNITS/ML VIAL SUBCUT SCH (08:39)
[2018-05-29] MEDS: MORPHINE 4 MG/ML INJ. SYRINGE IVP PRN (10:38)
--- NOTE | 2018-05-29 11:20 | NUR ---
Seen by Dr. Marcus harveyed for patient to be discharged with home health for patient rehab, physical therapy, safety evaluation, and gait training.
[2018-05-29 11:49] VITALS: BP_SYST 148
[2018-05-29 12:00] VITALS: BP_SYST 148
--- NOTE | 2018-05-29 12:20 | NUR ---
Discharge Planning: DCP faxed pt order to [facility] (f [phone] p [phone]) DCP to follow up. Addendum: 05/29/18 at 1510 by Promise Boss DP [facility] (f [phone] p [phone]) Keren stated she will accept pt
--- NOTE | 2018-05-29 14:10 | NUR ---
Notes patient is sitting in bed watching tv, family is at bedside, patient is changed and awaiting discharge planning, no signs of pain or distress noted at this time, safety precautions in place, call light within reach.
--- NOTE | 2018-05-29 15:29 | NUR ---
Dietitian Recommendations *Recommend CCHO 2gm Na diet. Please see Nutritional Assessment for details. LG, TELMA
[2018-05-29 16:15] VITALS: BP_SYST 131
--- NOTE | 2018-05-29 16:19 | NUR ---
Discharge note patient discharged with home health services, patient ambulating with steady gait, patient's son Evangelista picked him up, patient given education on home health service and oral antibiotic regimen, patient verbalized an understanding, IV and ID wristband removed, no pain or distress noted.
[2018-05-29] MEDS ORDERED: chlordiazePOXIDE HCL 25 MG CAPSULE PO SCH (21:00)
--- NOTE | 2018-05-30 16:53 | NUR ---
Discharge Follow Up Phone Call SUPERVISOR CONCRETE STONE FINISHING phoned patient, . Patient stated he was doing okay. He filled his Levaquin prescription and is taking it as directed. He did not go to [facility] as he stated they told him to apply again next week due to his recent hospitalization and need to get things in order for admitting his in to a memory care unit. [facility] began services today and PT will begin again tomorrow. Patient stated he fell again today but is okay. Patient stated he has a cane, FWW and wheelchair. He will begin using a FWW around the home for a while and carry a phone at all times. Patient has not made a follow up appointment with his PCP. SUPERVISOR CONCRETE STONE FINISHING offered to make the appointment but patient prefers to make his own appointment. SUPERVISOR CONCRETE STONE FINISHING stressed the importance of follow up. Patient was happy with his care at [facility]. No further questions or concerns.
== END 2018-05-29 16:17 | disposition home health service (06) | DRG 872 ==
LOC: SED 13:52 → STU 16:49 → SMU 05-28 13:10
PROVIDERS: ADMIT General Practice; ATTEND General Practice
DX: A41.9 Sepsis, unspecified organism (principal); N12 Tubulo-interstitial nephritis, not specified as acute or chronic; F10.239 Alcohol dependence with withdrawal, unspecified; F84.0 Autistic disorder; G31.2 Degeneration of nervous system due to alcohol; E11.40 Type 2 diabetes mellitus with diabetic neuropathy, unspecified; E78.5 Hyperlipidemia, unspecified; F03.90 Unspecified dementia, unspecified severity, without behavioral disturbance, psychotic disturbance, mood disturbance, and anxiety; G89.4 Chronic pain syndrome; I10 Essential (primary) hypertension; K21.9 Gastro-esophageal reflux disease without esophagitis; W18.30XA Fall on same level, unspecified, initial encounter; Z96.651 Presence of right artificial knee joint; F32.9 Major depressive disorder, single episode, unspecified; M54.9 Dorsalgia, unspecified; R26.81 Unsteadiness on feet; Z79.82 Long term (current) use of aspirin; Z87.11 Personal history of peptic ulcer disease; Z79.899 Other long term (current) drug therapy
CPT/HCPCS: 36415; 70450-TC; 71045; 80048; 80053; 80061; 80307; 81000-TC; 82962; 83036; 83605; 83735-TC; 84443-TC; 84484; 85025; 85610-TC; 85730-TC; 87040-TC; 87086; 93005; 93306; 96361; 96365; 96375; 99285; G0482; J0696; J1200; J1644; J1815; J2060; J2270; J2405; J3475; J7030; J7040

== ENCOUNTER 2018-12-14 09:53 | Inpatient (IN) | payer OTHER, MEDICARE ==
[~2018-12-14] VITALS: Ht 172.7 cm; Wt 93.0 kg
[~2018-12-14 09:53] MED LIST changes: +ASA81 PO; +BACL10TA PO; +DULO60CA41 PO; -ESCI20TA PO; -GABA-533 PO; +GABA800T PO; +GLU500 PO; -GLUXR500 PO; -HYDR25TA4 PO; -LORA2TAB PO; +LOSA25TA3 PO; -LUBI24CA5 PO; -MECL-110 PO; -METO-442 PO; +METO25TA3 PO; -MORP15TA PO; +OMEP20CA10 PO; -OXCA600T5 PO; -OXYC-133 PO; +ROSU10TA PO; +SUCR1TAB78 PO
[2018-12-14 09:58] VITALS: BP_SYST 151
--- NOTE | 2018-12-14 10:10 | NUR ---
Patient to ER bed 5 to gown for evaluation. Side rails up. Report given to CARLOS Pollard.
--- NOTE | 2018-12-14 10:12 | NUR ---
ER Dr. Valdez at bedside examining patient.
--- NOTE | 2018-12-14 10:15 | NUR ---
PATIENT CAME IN BECAUSE HE WAS SENT HERE FROM PLACE WHERE HE WAS BEEN GETTING ANTIBIOTICS. PATIENT RECENTLY GOT BONE GRAPH DONE AND IS SUPPOSE TO GET ANTIBIOTIC THERAPY. PATIENT MISSED ONE BECAUSE HE HAS BEEN DRINKING. PATIENT'S VITALS WERENT STABLE SO HE WAS SENT HERE. PATIENT SHAKET. PATIENT STATES LAST DRINK WAS YESTERDAY. PATIENT ALERT AND ORIENTED X4. PATIENT NOT COMPLAINING OF PAIN OR SOB.
--- NOTE | 2018-12-14 10:20 | NUR ---
# 22 gauge angiocath placed to LEFT WRIST. Use of asceptic technique. Opsite placed over site. Blood return noted. Flushed with 10 cc of normal saline. No evidence of infiltration noted. Patient tolerated well.
[2018-12-14] MEDS ORDERED: NACL 0.9% 1,000 ML IV ONE (10:30)
[2018-12-14] MEDS ORDERED: LORazepam 2 MG/ML VIAL (FOR ER USE) IVP ONE ×2 (10:30→12:30)
--- NOTE | 2018-12-14 10:51 | NUR ---
Note dulceone in EDM - 12/14/18 at 1052 by DAREN # 22 gauge angiocath placed to LEFT WRIST. Use of asceptic technique. Opsite placed over site. Blood return noted. Flushed with 10 cc of normal saline. No evidence of infiltration noted. Patient tolerated well.
[2018-12-14 11:08] LABS: ALBUMIN 3.9 g/dL (3.4-4.8); CALCIUM 9.7 mg/dL (8.4-11.0); CREATININE 1.28 mg/dL (0.55-1.30); POTASSIUM 4.1 mmol/L (3.5-5.1); TOTAL BILIRUBIN 0.6 mg/dL (0.0-1.0)
[2018-12-14 11:18] LABS: BASOPHILS # (AUTO) 0.1 K/uL (0.0-0.2); BASOPHILS % (AUTO) 0.4 % (0.0-2.0); EOSINOPHILS % (AUTO) 0.1 % (0.0-4.0); HEMATOCRIT 40.7 % (36-54); HEMOGLOBIN 13.7 g/dL (14.0-18.0); LYMPHOCYTES # (AUTO) 3.5 K/uL (1.0-5.5); LYMPHOCYTES % (AUTO) 24.6 % (20.5-51.5); MEAN CORPUSCULAR HEMOGLOBIN 31 pg (27-31); MEAN CORPUSCULAR HGB CONC 34 % (32-36); MEAN CORPUSCULAR VOLUME 91 fL (79.0-98.0); MONOCYTES # (AUTO) 1.4 K/uL (0.0-1.0); MONOCYTES % (AUTO) 10.1 % (1.7-9.3); NEUTROPHILS # (AUTO) 9.1 K/uL (1.8-7.7); NEUTROPHILS % (AUTO) 64.8 % (40.0-70.0); PLATELET COUNT (AUTO) 326 K/uL (130-430); RED CELL DISTRIBUTION WIDTH 13.5 % (9.0-15.0); WHITE BLOOD COUNT (AUTO) 14.1 K/uL (4.8-10.8)
--- NOTE | 2018-12-14 12:29 | NUR ---
In/out catheter performed for urine sample. 100CC of yellow urine drained. Patient tolerated well.
--- NOTE | 2018-12-14 12:35 | NUR ---
MED REC WAS ATTEMPTED. PATIENT STATES HE TAKES LOTS OF MEDICATIONS BUT DOESNT REMEMBER DOSE AND INFORMATION ABOUT THEM. PATIENT STATES HE WILL ASK HIS SON TO BRING LIST LATER.
--- NOTE | 2018-12-14 12:40 | NUR ---
Patient will be admitted to care of DR. CHERRY. Admitted to TELE unit. Will go to room 103B. Belongings list completed. Summary report printed. Report will be given at bedside.
[2018-12-14 12:44] LABS: BILIRUBIN,URINE NEGATIVE (NEGATIVE); BLOOD, URINE NEGATIVE (NEGATIVE); CLARITY/URINE CLEAR (CLEAR); COLOR,URINE YELLOW (YELLOW); GLUCOSE,URINE NEGATIVE (NEGATIVE); KETONES,URINE 1+ (NEGATIVE); LEUKOCYTE ESTERASE ,URINE NEGATIVE (NEGATIVE); NITRITE, URINE NEGATIVE (NEGATIVE); PROTEIN URINE NEGATIVE (NEGATIVE); UROBILINOGEN,URINE 0.2 (0.2-1.0)
[2018-12-14] MEDS ORDERED: ENALAPRILAT DIHYDRATE 1.25 MG/ML VIAL IVP ONE (12:45)
[2018-12-14] MEDS ORDERED: LORazepam 2 MG/ML VIAL IVP PRN (13:00)
--- NOTE | 2018-12-14 13:15 | NUR ---
PATIENT'S BP AFTER VASOTEC WAS 144/77.
--- NOTE | 2018-12-14 13:20 | NUR ---
Transfer to TELE via ACLS protocol. Licensed nurse present. IV present no signs or symptoms of infiltration.
--- NOTE | 2018-12-14 13:22 | NUR ---
CONSULTATION PAGED REASON FOR CONSULTATION:ALCOHOL WITHDRAWL WAS CONSULT CALLED?Y PERSON WHO WAS NOTIFIED:MOLLY CONSULTING PHYSICIAN:LEELEE AVITIA SUPERVISOR STRIPPING SPECIALTY:PSYCH SUPERVISOR STRIPPING PHONE NUMBER:[phone] REQUESTING PHYSICIAN:ABILIO SAVAGE
--- NOTE | 2018-12-14 13:26 | NUR ---
ADMISSION NOTE Received patient from ER via latha, received report from Latrice GONZALEZ. Patient admitted with diagnosis of Alcohol withdrawal. Patient oriented to hospital routine, call light, toileting and safety-patient verbalized understanding.
--- NOTE | 2018-12-14 13:45 | NUR ---
Admit Note: Received report from ADN. Patient assisted to restroom and back to bed, minimum assistance. Patient denies pain and discomfort. No signs of agitation/anxiety. Breathing is even and unlabored with no distress on room air. PICC line patent and intact. Safety precautions in place; bed in lowest position, wheels locked, side rails x3, bed alarm activated and call light within reach. No needs at this time. Will continue to monitor.
[2018-12-14] MEDS: FOLIC ACID 1 MG, THIAMINE HCL 100 MG, MAGNESIUM SULFATE 1 GM, MVI 10 ML in NACL 0.9% 1,... IV SCH (14:05)
[2018-12-14 14:07] VITALS: BP_SYST 131
[2018-12-14 15:21] VITALS: BP_SYST 129
--- NOTE | 2018-12-14 16:06 | NUR ---
Rounds: Patient in bed asleep. No distress noted. Will continue to monitor.
--- NOTE | 2018-12-14 18:00 | NUR ---
PICC line dressing: PICC line dressing changed, new dressing applied, clean dry and intact. Next dressing change due 12/21/2018.
--- NOTE | 2018-12-14 18:39 | NUR ---
Closing Note: Patient in bed resting. Patient denies pain and discomfort. Breathing is even and unlabored with no distress noted. No signs of agitation/anxiety noted. PICC line patent and intact, no signs of infiltration noted. Safety precautions in place; bed in lowest position, wheels locked, side rails x3, bed alarm activated and call light within reach. All needs met. Will endorse plan of care to NOC, nurse.
[2018-12-14] MEDS ORDERED: INSULIN REGULAR, HUMAN 100 UNITS/ML, 10 ML VIAL (novoLIN R) SUBCUT PRN (19:45)
[2018-12-14] MEDS ORDERED: DEXTROSE 50% JECT 50 ML DISP.SYRIN IVP PRN (19:45)
[2018-12-14 20:20] VITALS: BP_SYST 136
--- NOTE | 2018-12-14 20:29 | NUR ---
CONSULTATION PAGED/CALLED Reason for Consultation: INFECTION Person Who was Notified: RAJENDRA Consulting Physician: DR. JULES; DIESEL POWERPLANT SUPERVISOR-DR. OLIVARES Storm Sash Maker Specialty: GI Ordering Physician: DR. CAS CHARLES Addendum: 12/14/18 at 2037 by Genesis Arriaza ND/ SENG CONSULTING PHYSICIAN & ORDERING PHYSICIAN: CONSULTING PHYSICIAN: DR. DICKERSON SHELTER CASE MANAGER SPECIALTY: ID ORDERING PHYSICIAN: DR. CHERRY
[2018-12-14] MEDS: chlordiazePOXIDE HCL 25 MG CAPSULE PO SCH (22:09)
[2018-12-14] MEDS: BACLOFEN 10 MG TABLET PO SCH (22:09)
[2018-12-14] MEDS: ENOXAPARIN SODIUM 40 MG/0.4 ML SYRINGE SUBCUT SCH (22:10)
[2018-12-14] MEDS: GABAPENTIN 400 MG CAPSULE PO SCH (22:10)
--- NOTE | 2018-12-14 22:15 | NUR ---
LOVENOX 40 MG SUB Q. administer as ordered no adverse reaction noted skin dry warm .
--- NOTE | 2018-12-15 | NUR ---
DR DILIP COMER here to see patient & at the bedside New ORDERS OBTAINED & carried out .
[2018-12-15 01:00] VITALS: BP_SYST 120
--- NOTE | 2018-12-15 03:45 | NUR ---
HOURLY ROUNDING PATIENT AWAKE ON AND OFF IS VERBALLY RESPONSIVE ON ROOM AIR CHEST MOVEMENT SYMMETRICAL CALL BEL WITH PATIENT .
--- NOTE | 2018-12-15 03:48 | NUR ---
LIBRIUM 25 MG PO GIVEN ORDERED FOR ETOH agitation and helpful .
--- NOTE | 2018-12-15 03:50 | NUR ---
FALL PRECAUTIONS PATIENT USING URINAL NEEDED call medley with patient .
[2018-12-15 06:31] LABS: BASOPHILS % (AUTO) 0.4 % (0.0-2.0); EOSINOPHILS % (AUTO) 0.6 % (0.0-4.0); HEMATOCRIT 37.4 % (36-54); HEMOGLOBIN 12.5 g/dL (14.0-18.0); LYMPHOCYTES # (AUTO) 2.5 K/uL (1.0-5.5); LYMPHOCYTES % (AUTO) 34.6 % (20.5-51.5); MEAN CORPUSCULAR HEMOGLOBIN 31 pg (27-31); MEAN CORPUSCULAR HGB CONC 33 % (32-36); MEAN CORPUSCULAR VOLUME 92 fL (79.0-98.0); MONOCYTES # (AUTO) 0.8 K/uL (0.0-1.0); MONOCYTES % (AUTO) 10.4 % (1.7-9.3); NEUTROPHILS # (AUTO) 3.9 K/uL (1.8-7.7); PLATELET COUNT (AUTO) 205 K/uL (130-430); RED BLOOD CELL COUNT(AUTO) 4.05 MIL/uL (4.2-6.2); RED CELL DISTRIBUTION WIDTH 13.6 % (9.0-15.0); WHITE BLOOD COUNT (AUTO) 7.2 K/uL (4.8-10.8)
--- NOTE | 2018-12-15 07:05 | NUR ---
Opening Note: Patient in bed resting. Patient denies pain and discomfort. Breathing is even and unlabored with no distress noted. No signs of agitation/anxiety noted. PICC line patent and intact, dressing CDI. Safety precautions in place; bed in lowest position, wheels locked, side rails x3, bed alarm activated and call light within reach. No needs at this time. Will continue to monitor.
[2018-12-15 07:06] LABS: ALBUMIN 3.1 g/dL (3.4-4.8); CALCIUM 9.1 mg/dL (8.4-11.0); CREATININE 0.82 mg/dL (0.55-1.30); POTASSIUM 3.5 mmol/L (3.5-5.1); TOTAL BILIRUBIN 0.5 mg/dL (0.0-1.0)
[2018-12-15 08:00] VITALS: BP_SYST 120
[2018-12-15] MEDS: OMEPRAZOLE 20 MG CAPSULE.DR (PriLOSEC) PO SCH (08:16)
[2018-12-15] MEDS: LOSARTAN POTASSIUM 25 MG TABLET PO SCH (08:16)
[2018-12-15] MEDS: GABAPENTIN 400 MG CAPSULE PO SCH ×3 (08:17→20:43)
[2018-12-15] MEDS: ATORVASTATIN 20 MG TABLET PO SCH (08:17)
[2018-12-15] MEDS: METOPROLOL SUCCINATE 25 MG TAB.SR.24H (TOPROL XL) PO SCH (08:17)
[2018-12-15] MEDS: THIAMINE HCL 100 MG TABLET PO SCH (08:18)
[2018-12-15] MEDS: FOLIC ACID 1 MG TABLET PO SCH (08:18)
[2018-12-15] MEDS: metFORMIN HCL 500 MG TABLET PO SCH (08:18)
[2018-12-15] MEDS: SUCRALFATE 1 GM TABLET PO SCH (08:19)
[2018-12-15] MEDS: ASPIRIN 81 MG TAB.CHEW PO SCH (08:19)
[2018-12-15] MEDS: BACLOFEN 10 MG TABLET PO SCH ×2 (08:19→20:42)
[2018-12-15] MEDS: DULoxetine HCL 30 MG CAPSULE.DR (CYMBALTA) PO SCH (08:20)
[2018-12-15] MEDS: chlordiazePOXIDE HCL 25 MG CAPSULE PO SCH ×2 (08:21→14:50)
[2018-12-15] MEDS ORDERED: ROSUVASTATIN CALCIUM 5 MG/TAB (CRESTOR) PO SCH (09:00)
[2018-12-15] MEDS: BENZOCAINE/MENTHOL 1 EACH LOZENGE MM PRN ×2 (10:19→14:54)
--- NOTE | 2018-12-15 10:19 | NUR ---
Rounds: Patient in bed resting, no distress noted. Cepacol given, will reassess. Will continue to monitor.
--- NOTE | 2018-12-15 11:28 | NUR ---
Environmental Restoration Planner: HOOKER MACHINE TENDER met with pt. bedside. He easily participated in this interview. He stated he knows why he was admitted to [facility], due to Alcohol. Pt. stated he drank 4 bottles of wine in 3 days and this caused him to miss his apt. for his medical care. He currently needs an IV for another 4 weeks. Pt. stated he will go for long periods of time being sober and then he will fall back to drinking. Recently, he had to put his in another home for Alzheimer pts. He stated it is hard to see her in this condition as she use to be high functioning nurse at [employer]. Another trigger was his lf. knee which is bone on bone. Pt. stated he has two sons, Evangelista in [place] (38 yrs. old) [phone] and Edwin, who lives with him (36 yrs.old) [phone]. Pt. stated he sees his show worker 1x per week to talk about issues and finds these mtg. to be a good sense of support. Pt. added he has a lot of neighbors that will do anything for him if he asked. Pt. also stated " I see a shrink weekly, Dr. Verito Huitron" Pt. stated he was formally dual Dx with Depression and Alcoholism. He describes himself as a closet alcoholic. Pt. stated he had gone to a 21 day detox. program at [place]. He has already called to see if he can get back into this program once he is done treating his toe with the IV in 4 weeks. He stated he is familiar with AA but did not find it helpful. Pt. was insightful stating, "I realize there are so many AA to try". Pt. gladly accepted Substance Abuse Referrals with HOOKER MACHINE TENDER offered. Pt. stated he gets around, but avoids stairs. When asked pt. stated he has a walker, cane and wheelchair at home. He just has to use them. When asked, pt. stated he has a Health Directive already and will ask his son to bring a copy to this hospital. HOOKER MACHINE TENDER thanked pt. for answering all her questions. Pt. stated he did not have any questions. HOOKER MACHINE TENDER will remain available as needed. Addendum: 12/15/18 at 1220 by Magda Wesley HOOKER MACHINE TENDER Environmental Restoration Planner: HOOKER MACHINE TENDER was speaking to pt. bedside and pt. added that he use to heavily use opioids, but kicked it cold turkey. HOOKER MACHINE TENDER stated that he could do the same with his alcohol useage. Pt. stated he wants to stop drinking.
--- NOTE | 2018-12-15 11:50 | NUR ---
Rounds: Patient in bed resting. Patient denies pain and discomfort. No signs of agitation or anxiety. Morning medications tolerated well. No SOB or respiratory distress noted at this time. Linen changed and patient assisted back into bed. Safety precautions in place; bed in lowest position, wheels locked, side rails x3, bed alarm activated and call light within reach. No needs at this time. Will continue to monitor.
[2018-12-15 12:04] VITALS: BP_SYST 142
[2018-12-15] MEDS: FOLIC ACID 1 MG, THIAMINE HCL 100 MG, MAGNESIUM SULFATE 1 GM, MVI 10 ML in NACL 0.9% 1,... IV SCH (13:36)
--- NOTE | 2018-12-15 14:10 | NUR ---
Rounds: Patient in bed asleep. No distress noted. Will continue to monitor.
[2018-12-15 16:01] VITALS: BP_SYST 132
[2018-12-15] MEDS ORDERED: *CUBICIN 4 MG/KG Q24H/PHARMACY XX PRN (17:30)
[2018-12-15] MEDS: NS IV SCH (18:08)
[2018-12-15] MEDS: DAPTOMYCIN IV SCH (18:08)
--- NOTE | 2018-12-15 19:15 | NUR ---
Opening notes Received report. Patient resting comfortably in bed. No signs of distress noted. Breathing is even and unlabored. Denies any pain or discomfort at this time. PICC line patent and intact, infusing banana bag. VSS. No needs at this time. Patient refusing bed alarm. Educated patient on fall risk precautions. Call light with the patient. Safety precautions in place.
[2018-12-15 20:10] VITALS: BP_SYST 121
--- NOTE | 2018-12-15 20:45 | NUR ---
Medications given. Educated the action and side effects of medications. Patient verbalized understanding and tolerated well. No other needs. Call light with the patient. Safety precautions in place.
[2018-12-15] MEDS: ENOXAPARIN SODIUM 40 MG/0.4 ML SYRINGE SUBCUT SCH (20:49)
[2018-12-15] MEDS: LORazepam 1 MG TABLET PO SCH (22:54)
--- NOTE | 2018-12-15 22:55 | NUR ---
Anxious Patient feeling anxious. PRN ativan PO given. Patient tolerated well. No other needs. Call light with the patient. Safety precautions in place.
--- NOTE | 2018-12-16 00:30 | NUR ---
Sleeping No signs of distress noted. Breathing even and unlabored. No needs. Call light with the patient. Safety precautions in place.
[2018-12-16 00:33] VITALS: BP_SYST 138
--- NOTE | 2018-12-16 02:30 | NUR ---
Sleeping Emptied 200 ml from urinal. No other needs. Call light with the patient. Safety precautions in place.
--- NOTE | 2018-12-16 04:30 | NUR ---
Sleeping No signs of distress noted. Breathing even and unlabored. Call light with the patient. Safety precautions in place.
--- NOTE | 2018-12-16 06:46 | NUR ---
Closing notes Patient resting comfortably in bed. No signs of distress noted. Provided patient with new gown, blanket and socks. PICC line patent and intact, saline locked. All needs met throughout the shift. Call light with the patient. Safety precautions in place. Will endorse care to day shift RN.
--- NOTE | 2018-12-16 07:32 | NUR ---
Patient is sleeping, but arousable. AOx3. Safety precautions in place; bed locked at the lowest position. No needs at this time. Call light in place, and instructed to use it for needs. Will continue to monitor.
[2018-12-16 08:00] VITALS: BP_SYST 158
[2018-12-16] MEDS: DULoxetine HCL 30 MG CAPSULE.DR (CYMBALTA) PO SCH (08:09)
[2018-12-16] MEDS: LOSARTAN POTASSIUM 25 MG TABLET PO SCH (08:10)
[2018-12-16] MEDS: LORazepam 1 MG TABLET PO SCH ×2 (08:11→20:54)
[2018-12-16] MEDS: METOPROLOL SUCCINATE 25 MG TAB.SR.24H (TOPROL XL) PO SCH (08:11)
[2018-12-16] MEDS: ASPIRIN 81 MG TAB.CHEW PO SCH (08:12)
[2018-12-16] MEDS: OMEPRAZOLE 20 MG CAPSULE.DR (PriLOSEC) PO SCH (08:12)
[2018-12-16] MEDS: metFORMIN HCL 500 MG TABLET PO SCH (08:12)
[2018-12-16] MEDS: ATORVASTATIN 20 MG TABLET PO SCH (08:12)
[2018-12-16] MEDS: SUCRALFATE 1 GM TABLET PO SCH (08:12)
[2018-12-16] MEDS: FOLIC ACID 1 MG TABLET PO SCH (08:13)
[2018-12-16] MEDS: BACLOFEN 10 MG TABLET PO SCH ×2 (08:13→20:48)
[2018-12-16] MEDS: THIAMINE HCL 100 MG TABLET PO SCH (08:13)
[2018-12-16] MEDS: GABAPENTIN 400 MG CAPSULE PO SCH ×3 (08:14→20:49)
--- NOTE | 2018-12-16 10:00 | NUR ---
PATIENT IS RESTING, NO SIGNS OF DISTRESS NOTED.
--- NOTE | 2018-12-16 11:20 | NUR ---
PATIENT'S BLOOD SUGAR 109. NO INSULIN NEEDED.
[2018-12-16 11:23] VITALS: BP_SYST 113
--- NOTE | 2018-12-16 11:30 | NUR ---
DC Planning: s/w regarding possible going home with IV ABX. The pt stated he has been going to [facility] in [place] for IV ABX treatment for the past 14 weeks and 6 more weeks to finish the course. He or his son drove to the ctr every day. The treatment is for septic left knee which needs to be treated before further evaluation for surgery. The pt does not want snf placement and stated no need for the since he will have IV ABX at the infusion ctr.
[2018-12-16] MEDS: FOLIC ACID 1 MG, THIAMINE HCL 100 MG, MAGNESIUM SULFATE 1 GM, MVI 10 ML in NACL 0.9% 1,... IV SCH ×2 (13:30→19:08)
--- NOTE | 2018-12-16 14:05 | NUR ---
DR. CHERRY AT BEDSIDE ASSESSING PATIENT. D/C IS GIVEN.
[2018-12-16 15:30] VITALS: BP_SYST 122
[2018-12-16] MEDS ORDERED: LORA-259 PO (15:59)
--- NOTE | 2018-12-16 16:00 | NUR ---
DC Planning: Called [facility] infusion [facility]tr # [phone] no answer. Unable to notify,confirm availability to give ABX for tomorrow dose. Per pt. the center opens everyday and stop taking call by 4 pm. The aware to stay in [place] tonight after receives the next dose IV ABX scheduled at 6pm. He will call the center tomorrow to confirm the chair time. CARLOS Higigns made aware and to help arranging the chair time tomorrow before discharge the pt home. The pt. does not want HH. He is able to ambulate and can drive to the md office or his son is available to help.
[2018-12-16] MEDS ORDERED: THIA50TA10 PO (16:02)
[2018-12-16] MEDS ORDERED: FOLI-43 PO (16:06)
[2018-12-16] MEDS: DAPTOMYCIN IV SCH (17:17)
[2018-12-16] MEDS: NS IV SCH (17:17)
--- NOTE | 2018-12-16 18:12 | NUR ---
CM ATTEMPTED TO ARRANGE DISCHARGE, BUT PATIENT IS UNSURE OF THE AVAILABILITY OF THE INFUSION CENTER FOR HIS REGULAR ABX INFUSION. DISCHARGE IS DELAYED UNTIL TOMORROW PER FEATHER SAWYER.
--- NOTE | 2018-12-16 19:20 | NUR ---
Opening notes Received report. Patient is resting comfortably in bed. No signs of distress noted. Breathing is even and unlabored. PICC is patent and intact, infusing banana bag. No needs at this time. Call light with the patient. Safety precautions in place.
[2018-12-16 20:00] VITALS: BP_SYST 118
[2018-12-16] MEDS: ENOXAPARIN SODIUM 40 MG/0.4 ML SYRINGE SUBCUT SCH (20:53)
--- NOTE | 2018-12-16 21:00 | NUR ---
Medications given. Educated the action and side effects of medications. Patient verbalized understanding and tolerated well. No signs of allergic reaction noted. No other needs. Call light with the patient. Safety precautions in place.
--- NOTE | 2018-12-16 23:30 | NUR ---
Sleeping No signs of distress noted. Breathing is even and unlabored. Call light with the patient. Safety precautions in place.
[2018-12-17 00:14] VITALS: BP_SYST 110
[2018-12-17 00:16] VITALS: BP_SYST 141
--- NOTE | 2018-12-17 01:29 | NUR ---
Ambulated to bathroom steady gait. Patient in bed and went back to sleep. No needs. Call light with the patient. Safety precautions in place.
--- NOTE | 2018-12-17 04:22 | NUR ---
Sleeping No signs of distress noted. Breathing even and unlabored. Call light with the patient. Safety precautions in place.
--- NOTE | 2018-12-17 06:56 | NUR ---
Closing notes Patient resting comfortably in bed. No signs of distress noted. PICC line patent and intact, saline locked. All needs met throughout the shift. Call light with the patient. Safety precautions in place. Will endorse care to day shift RN.
[2018-12-17 07:29] VITALS: BP_SYST 148
--- NOTE | 2018-12-17 07:30 | NUR ---
am rounds: oriented x4. right upper arm picc intact, patent. denies discomfort. call light within reach. aware of today's plan of care.
[2018-12-17] MEDS: OMEPRAZOLE 20 MG CAPSULE.DR (PriLOSEC) PO SCH (09:03)
[2018-12-17] MEDS: ATORVASTATIN 20 MG TABLET PO SCH (09:03)
[2018-12-17] MEDS: SUCRALFATE 1 GM TABLET PO SCH (09:03)
[2018-12-17] MEDS: THIAMINE HCL 100 MG TABLET PO SCH (09:03)
[2018-12-17] MEDS: GABAPENTIN 400 MG CAPSULE PO SCH ×2 (09:04→14:48)
[2018-12-17] MEDS: FOLIC ACID 1 MG TABLET PO SCH (09:04)
[2018-12-17] MEDS: LOSARTAN POTASSIUM 25 MG TABLET PO SCH (09:04)
[2018-12-17] MEDS: BACLOFEN 10 MG TABLET PO SCH (09:04)
[2018-12-17] MEDS: DULoxetine HCL 30 MG CAPSULE.DR (CYMBALTA) PO SCH (09:04)
[2018-12-17] MEDS: ASPIRIN 81 MG TAB.CHEW PO SCH (09:04)
[2018-12-17] MEDS: metFORMIN HCL 500 MG TABLET PO SCH (09:05)
[2018-12-17] MEDS: METOPROLOL SUCCINATE 25 MG TAB.SR.24H (TOPROL XL) PO SCH (09:05)
--- NOTE | 2018-12-17 09:06 | NUR ---
activity: ambulated to the bathroom independently with steady gait. no signs of alcohol withdrawal noted.
--- NOTE | 2018-12-17 10:56 | NUR ---
DC plan for IV atbx: Spoke with Milady at [facility] , patient can resume with his treatment tomorrow 12/18/18 at 10:15 am if discharged home today.
[2018-12-17 11:17] VITALS: BP_SYST 131
[2018-12-17] MEDS: LORazepam 1 MG TABLET PO SCH (11:23)
[2018-12-17 13:20] VITALS: BP_SYST 136
[2018-12-17] MEDS: FOLIC ACID 1 MG, THIAMINE HCL 100 MG, MAGNESIUM SULFATE 1 GM, MVI 10 ML in NACL 0.9% 1,... IV SCH (13:29)
--- NOTE | 2018-12-17 14:59 | NUR ---
Rounds: Ambulated in the hallway independently with steady gait. No signs of alcohol withdrawal noted.
--- NOTE | 2018-12-17 15:00 | NUR ---
MD rounds: Seen by Dr. Calabrese, patient will be discharged home after [facility] infusion.
[2018-12-17 16:54] VITALS: BP_SYST 136
[2018-12-17] MEDS: DAPTOMYCIN IV SCH (17:08)
[2018-12-17] MEDS: NS IV SCH (17:08)
--- NOTE | 2018-12-17 18:45 | NUR ---
D/C Patient Patient given medication reconciliation form and D/C instructions. Exit Care provided. Patient verbalized understanding. MD discussed with patient the results and treatment provided. Ambulatory with steady gait for discharge to home. Patient in stable condition, ID band removed. PICC line intact with dressing dry and intact. no Rx of ativan, thiamine and folic acid given. Patient educated disease management and follow up with Psyche and Primary physician. Accompanied by son.
== END 2018-12-17 18:45 | disposition home or self-care (01) | DRG 897 ==
LOC: SED 09:53 → STU 13:00 → SMU 12-15 15:08
PROVIDERS: ADMIT Internal Medicine; ATTEND Internal Medicine
DX: F10.239 Alcohol dependence with withdrawal, unspecified (principal); M86.8X7 Other osteomyelitis, ankle and foot; E11.69 Type 2 diabetes mellitus with other specified complication; D64.9 Anemia, unspecified; E78.5 Hyperlipidemia, unspecified; F32.9 Major depressive disorder, single episode, unspecified; I10 Essential (primary) hypertension; J44.9 Chronic obstructive pulmonary disease, unspecified; E11.40 Type 2 diabetes mellitus with diabetic neuropathy, unspecified; Z79.4 Long term (current) use of insulin; Z79.82 Long term (current) use of aspirin; Z79.84 Long term (current) use of oral hypoglycemic drugs; Z79.899 Other long term (current) drug therapy
CPT/HCPCS: 36415; 80053; 81003; 82550-TC; 82962; 85025; 85651-TC; 87081; 96361; 96374; 96375; 96376; 99291; G0378; J0878; J1650; J1815; J2060; J3411; J3475; J3490; J7030

== ENCOUNTER 2019-02-26 19:57 | Inpatient (IN) | payer OTHER, MEDICARE ==
[~2019-02-26] VITALS: Ht 170.2 cm; Wt 90.7 kg
[~2019-02-26 19:57] MED LIST changes: +FOLI-43 PO; +LORA-259 PO; +THIA50TA10 PO
[2019-02-26 20:02] VITALS: BP_SYST 156
--- NOTE | 2019-02-26 20:05 | NUR ---
Patient to ER bed 07 to gown for evaluation. Side rails up.
--- NOTE | 2019-02-26 20:25 | NUR ---
ER at bedside examining patient.
[2019-02-26] MEDS ORDERED: ONDANSETRON HCL 4 MG/2 ML VIAL IVP ONE (20:45)
[2019-02-26] MEDS ORDERED: KETOROLAC TROMETHAMINE 30 MG VIAL IVP ONE (20:45)
[2019-02-26] MEDS ORDERED: FOLIC ACID 1 MG, THIAMINE HCL 100 MG, MAGNESIUM SULFATE 1 GM, MVI 10 ML in NACL 0.9% 1,... IV ONE (20:45)
--- NOTE | 2019-02-26 20:55 | NUR ---
Patient transported to radiology via GURNEY, accompanied by RAD STAFF.
[2019-02-26] MEDS ORDERED: MAGNESIUM SULFATE 1 GM/2 ML VIAL ONE (21:08)
[2019-02-26] MEDS ORDERED: MVI 10 ML VIAL IV ONE (21:08)
[2019-02-26] MEDS ORDERED: THIAMINE HCL 100 MG/ML VIAL ONE (21:08)
[2019-02-26] MEDS ORDERED: FOLIC ACID 5 MG/ML VIAL IV ONE (21:08)
[2019-02-26 21:11] LABS: BASOPHILS % (AUTO) 0.2 % (0.0-2.0); HEMATOCRIT 40.7 % (36-54); HEMOGLOBIN 13.6 g/dL (14.0-18.0); LYMPHOCYTES % (AUTO) 19.2 % (20.5-51.5); MEAN CORPUSCULAR HEMOGLOBIN 32 pg (27-31); MEAN CORPUSCULAR HGB CONC 33 % (32-36); MEAN CORPUSCULAR VOLUME 94 fL (79.0-98.0); MONOCYTES # (AUTO) 1.3 K/uL (0.0-1.0); MONOCYTES % (AUTO) 8.2 % (1.7-9.3); NEUTROPHILS # (AUTO) 11.3 K/uL (1.8-7.7); NEUTROPHILS % (AUTO) 72.4 % (40.0-70.0); PLATELET COUNT (AUTO) 323 K/uL (130-430); RED BLOOD CELL COUNT(AUTO) 4.31 MIL/uL (4.2-6.2); RED CELL DISTRIBUTION WIDTH 14.2 % (9.0-15.0); WHITE BLOOD COUNT (AUTO) 15.5 K/uL (4.8-10.8)
--- NOTE | 2019-02-26 21:15 | NUR ---
Returned from radiology, back to [facility].
[2019-02-26 21:17] LABS: ANION GAP 23 (5-15); CALCIUM 8.1 mg/dL (8.4-11.0); CHLORIDE 98 mmol/L (98-107); CREATININE 1.16 mg/dL (0.55-1.30); GLUCOSE 118 mg/dL (70-99); POTASSIUM 4.2 mmol/L (3.5-5.1); SODIUM SERUM 141 mmol/L (136-145); UREA NITROGEN, BLOOD 21 mg/dL (8-21)
[2019-02-26 21:27] LABS: GFR AFRICAN AMERICAN 81 mL/min (>90)
[2019-02-26 21:33] LABS: ALANINE AMINOTRANSFERASE 42 U/L (12-78); ALBUMIN 3.8 g/dL (3.4-4.8); ALCOHOL, BLOOD 189 mg/dL (<10); ASPARTATE AMINOTRANSFERASE 29 U/L (10-37); TOTAL BILIRUBIN 0.4 mg/dL (0.0-1.0)
[2019-02-26 21:36] LABS: ACETAMINOPHEN < 1 ug/mL (1-30)
[2019-02-26] MEDS ORDERED: LORazepam 2 MG/ML VIAL (FOR ER USE) IVP ONE (22:00)
--- NOTE | 2019-02-26 22:24 | NUR ---
Stephanie rick in [facility] - 02/26/19 at 2224 by [email or web address] med Medication reconciliation completed with information provided by Patient. Any prior medication reconciliation on file was reviewed and corrected.
--- NOTE | 2019-02-26 22:25 | NUR ---
Medication reconciliation completed with information provided by Patient. Any prior medication reconciliation on file was reviewed and corrected.
--- NOTE | 2019-02-26 23:27 | NUR ---
Patient's code status is Full code paperwork completed and placed in chart.
--- NOTE | 2019-02-26 23:57 | NUR ---
Patient will be admitted to care of . Admitted to MED/SURG unit. Will go to room 113B. Belongings list completed. Summary report printed. Report will be given at bedside.
[2019-02-27] MEDS ORDERED: LORazepam 2 MG/ML VIAL (FOR ER USE) IVP ONE
[2019-02-27] MEDS ORDERED: LORazepam 2 MG/ML VIAL IVP PRN
[2019-02-27] MEDS ORDERED: PIPERACILLIN/TAZO 3.375 GM in NS 50 ML IV ONE ×2
[2019-02-27] MEDS ORDERED: PIPERACILLIN/TAZOBACTAM 3.375 GM/VIAL (ZOSYN) IV ONE ×2 (00:17)
--- NOTE | 2019-02-27 00:53 | NUR ---
ADMISSION: The patient, KYLE RODRIGUES, 68 y/o, M admitted by BEE BROWN MD,with the diagnosis of Rib Fracture and Pneumonia ,to 113 A , was given written information regarding hospital policies, unit procedures and contact persons.
--- NOTE | 2019-02-27 01:00 | NUR ---
Opening notes Patient is alert and oriented to name and location, but patient is often forgetful. Patient able to be reoriented. No signs of distress noted. Breathing even and unlabored. IV patent and intact. Patient is restless and shaking. Patient also has a temp of 100.4. Cooling measures applied. Oriented patient to room and call light. Patient able to demonstrate how to use call light. Call light with the patient. Safety precautions in place.
[2019-02-27 01:17] VITALS: BP_SYST 147
--- NOTE | 2019-02-27 01:28 | NUR ---
PAGED PAGED DOCTOR KEVIN
[2019-02-27] MEDS: D5NS 1,000 ML IV SCH ×3 (01:37→17:37)
--- NOTE | 2019-02-27 03:00 | NUR ---
Temp recheck Temp 99.7. No signs of distress noted. Patient is still restless. Call light with the patient. Safety precautions in place.
--- NOTE | 2019-02-27 04:30 | NUR ---
PRN Ativan given. Educated the action and side effects of medications. Patient verbalized understanding and tolerated well. No signs of allergic reaction noted. Call light with the patient. Safety precautions in place.
--- NOTE | 2019-02-27 06:41 | NUR ---
Closing notes Spoke to Dr. Link. Orders for Zosyn, Tylenol and Ativan to be inputted by nurse. Patient is resting in bed. No signs of distress noted. Breathing even and unlabored. IV patent and intact, infusing fluids. All needs met throughout the shift. Call light with the patient. Safety precautions in place. Will endorse care to day shift RN.
[2019-02-27] MEDS: ACETAMINOPHEN 325 MG TABLET PO PRN (07:42)
[2019-02-27] MEDS: LORazepam 2 MG/ML VIAL IVP PRN ×2 (07:43→11:17)
--- NOTE | 2019-02-27 07:56 | NUR ---
Initial notes: Patient awake, alert and oriented. Stable. I.V. access patent.Call light within reach. Safety measures in placed. Report received at bedside.
[2019-02-27 08:02] VITALS: BP_SYST 155
[2019-02-27] MEDS ORDERED: IPRATROPIUM/ALBUTEROL SULFATE 3 ML AMPUL.NEB (DUONEB) INH ONE (09:15)
[2019-02-27] MEDS: THIAMINE HCL IV SCH (09:36)
[2019-02-27] MEDS: MAGNESIUM SULFATE IV SCH (09:36)
[2019-02-27] MEDS: D5W IV SCH (09:36)
[2019-02-27] MEDS: FOLIC ACID 1 MG, MVI 10 ML in NACL 0.9% 1,000 ML IV SCH (09:38)
[2019-02-27] MEDS ORDERED: SUCRALFATE 1 GM TABLET PO ONE (09:45)
[2019-02-27] MEDS ORDERED: LOSARTAN POTASSIUM 25 MG TABLET PO ONE (09:45)
[2019-02-27] MEDS ORDERED: INSULIN REGULAR, HUMAN 100 UNITS/ML, 10 ML VIAL (humuLIN R) SUBCUT PRN (09:45)
[2019-02-27] MEDS ORDERED: ALBUTEROL SULFATE 0.083% 2.5 MG/3 ML VIAL.NEB INH PRN (09:45)
[2019-02-27] MEDS ORDERED: ATORVASTATIN 20 MG TABLET PO ONE (09:45)
[2019-02-27] MEDS ORDERED: chlordiazePOXIDE HCL 25 MG CAPSULE PO ONE (09:45)
[2019-02-27] MEDS ORDERED: ASPIRIN 81 MG TAB.CHEW PO ONE (09:45)
[2019-02-27] MEDS ORDERED: METOPROLOL SUCCINATE 25 MG TAB.SR.24H (TOPROL XL) PO ONE (09:45)
[2019-02-27] MEDS ORDERED: IPRATROPIUM BROM 0.5 MG/2.5 ML VIAL.NEB (ATROVENT) INH PRN (09:45)
[2019-02-27] MEDS ORDERED: DEXTROSE 50% JECT 50 ML DISP.SYRIN IVP PRN (09:45)
[2019-02-27 10:00] VITALS: BP_SYST 155
[2019-02-27] MEDS: PANTOPRAZOLE SODIUM 40 MG TAB PO SCH (10:06)
--- NOTE | 2019-02-27 11:21 | NUR ---
rounds: patient resting. shaking russell hands. ativan given.
[2019-02-27] MEDS: ALBUTEROL SULFATE 0.083% 2.5 MG/3 ML VIAL.NEB INH SCH ×4 (11:22→23:00)
[2019-02-27] MEDS: IPRATROPIUM BROM 0.5 MG/2.5 ML VIAL.NEB (ATROVENT) INH SCH ×4 (11:23→23:00)
[2019-02-27] MEDS: PIPERACILLIN/TAZO 3.375/DEX-IS 50 ML IV SCH ×2 (11:54→17:35)
[2019-02-27 12:56] VITALS: BP_SYST 152
[2019-02-27] MEDS ORDERED: COMMUNICATION ORDER XX ONE (13:45)
--- NOTE | 2019-02-27 14:34 | NUR ---
Product Safety Administrator Note Patient referred to Product Safety Administrator due to substance abuse. TECHNICAL MARKETING ENGINEER attempted to see the patient this morning but he was confused. Product Safety Administrator will attempt to follow up tomorrow.
[2019-02-27] MEDS: GABAPENTIN 400 MG CAPSULE PO SCH ×2 (15:04→22:51)
[2019-02-27] MEDS: chlordiazePOXIDE HCL 25 MG CAPSULE PO SCH ×2 (15:04→22:50)
[2019-02-27 16:20] VITALS: BP_SYST 114
--- NOTE | 2019-02-27 16:28 | NUR ---
rounds: patient resting on bed. still having expiratory wheezing. on oxygen and breathing treatment on schedule.
--- NOTE | 2019-02-27 17:44 | NUR ---
rounds: patient sleeping. no distress noted.
--- NOTE | 2019-02-27 18:57 | NUR ---
closing notes: Patient on bed sleeping. Stable. Needs attended. Call light within reach. Safety measures in placed. Report will be given to pigment and lacquer mixer.
--- NOTE | 2019-02-27 20:00 | NUR ---
note received patient alert and oriented, no acute distress noted, respiration even and unlabored, denies pain, no SOB, on O2 at 2LPM via nasal cannula, saturating at 96% O2, color WNL, cap refill less than 3 secs, IV infusing well, line patent, no complications noted, on fall precaution, all needs attended to, will continue to monitor, call light within reach.
--- NOTE | 2019-02-27 22:00 | NUR ---
note, in no apparent distress, will continue to monitor.
[2019-02-27] MEDS: BACLOFEN 10 MG TABLET PO SCH (22:50)
--- NOTE | 2019-02-28 | NUR ---
note, patient asleep, in no apparent distress, respiration even and unlabored, no complaint of pain or any discomfort, all due medications administered, with no adverse effect noted, continues on fall precaution, none this shift, report will be given to AM nurse Addendum: 02/28/19 at 0649 by Eighteen search advertising strategist no falls this shift
[2019-02-28 01:07] VITALS: BP_SYST 114
[2019-02-28] MEDS: PIPERACILLIN/TAZO 3.375/DEX-IS 50 ML IV SCH ×4 (01:44→18:10)
--- NOTE | 2019-02-28 02:00 | NUR ---
note, patient in room, asleep, in no acute distress, respiration even and unlabored, denies pain, all needs attended to, kept clean and dry, will conutinue to monitor, bed in low position and call light within reach
[2019-02-28] MEDS: IPRATROPIUM BROM 0.5 MG/2.5 ML VIAL.NEB (ATROVENT) INH SCH ×6 (03:00→23:00)
[2019-02-28] MEDS: ALBUTEROL SULFATE 0.083% 2.5 MG/3 ML VIAL.NEB INH SCH ×6 (03:00→23:00)
[2019-02-28] MEDS: D5NS 1,000 ML IV SCH ×2 (05:44→16:00)
--- NOTE | 2019-02-28 06:57 | NUR ---
note. in no apparent distress, IV antibiotics given per order, IVF infusing well, no complications noted, will give report to AM nurse, Patient remains alert , no change in LOC.
--- NOTE | 2019-02-28 07:36 | NUR ---
OPENING NOTE Patient resting in the bed. No acute distress. Respiration even and unlabored. On O2 2L/min via NC. Denied of pain. Skin warm and dry to touch. IV intact to RAC and LAC, no redness, no swelling, patent. On 1/2NS at 100ml/hr, infusing well. Discussed the safety issue, use call light when needs help, verbally understanding. Safety measure maintained. Call light within reached. Bed locked in low position, padded side rails up, bed alarm on. Will continue to monitor.
[2019-02-28 08:05] VITALS: BP_SYST 121
[2019-02-28 08:05] LABS: BASOPHILS % (AUTO) 0.3 % (0.0-2.0); EOSINOPHILS % (AUTO) 0.7 % (0.0-4.0); HEMATOCRIT 34.7 % (36-54); HEMOGLOBIN 11.7 g/dL (14.0-18.0); LYMPHOCYTES # (AUTO) 1.4 K/uL (1.0-5.5); LYMPHOCYTES % (AUTO) 22.3 % (20.5-51.5); MEAN CORPUSCULAR HEMOGLOBIN 32 pg (27-31); MEAN CORPUSCULAR HGB CONC 34 % (32-36); MEAN CORPUSCULAR VOLUME 96 fL (79.0-98.0); MONOCYTES # (AUTO) 0.7 K/uL (0.0-1.0); MONOCYTES % (AUTO) 10.4 % (1.7-9.3); NEUTROPHILS # (AUTO) 4.3 K/uL (1.8-7.7); NEUTROPHILS % (AUTO) 66.3 % (40.0-70.0); PLATELET COUNT (AUTO) 168 K/uL (130-430); WHITE BLOOD COUNT (AUTO) 6.4 K/uL (4.8-10.8)
[2019-02-28 08:10] LABS: RED BLOOD CELL COUNT(AUTO) 3.63 MIL/uL (4.2-6.2)
[2019-02-28 08:28] LABS: CALCIUM 7.2 mg/dL (8.4-11.0); CREATININE 0.68 mg/dL (0.55-1.30); POTASSIUM 3.3 mmol/L (3.5-5.1); TOTAL BILIRUBIN 0.6 mg/dL (0.0-1.0)
--- NOTE | 2019-02-28 08:54 | NUR ---
Nutrition Update Óscar Scale 15 noted. Pt admitted for rib fracture. Diet: NPO BMI: 31.5 kg/m2 RD to follow per nutrition care standards.
[2019-02-28] MEDS: FOLIC ACID 1 MG TABLET PO SCH (09:19)
[2019-02-28] MEDS: THIAMINE HCL IV SCH (09:19)
[2019-02-28] MEDS: MAGNESIUM SULFATE IV SCH (09:19)
[2019-02-28] MEDS: D5W IV SCH (09:19)
[2019-02-28] MEDS: LOSARTAN POTASSIUM 25 MG TABLET PO SCH (09:20)
[2019-02-28] MEDS: ATORVASTATIN 20 MG TABLET PO SCH (09:20)
[2019-02-28] MEDS: chlordiazePOXIDE HCL 25 MG CAPSULE PO SCH ×3 (09:21→21:56)
[2019-02-28] MEDS: SUCRALFATE 1 GM TABLET PO SCH (09:21)
[2019-02-28] MEDS: BACLOFEN 10 MG TABLET PO SCH ×2 (09:22→21:55)
[2019-02-28] MEDS: GABAPENTIN 400 MG CAPSULE PO SCH ×3 (09:22→21:55)
[2019-02-28] MEDS: ASPIRIN 81 MG TAB.CHEW PO SCH (09:23)
[2019-02-28] MEDS: PANTOPRAZOLE SODIUM 40 MG TAB PO SCH (09:23)
[2019-02-28] MEDS: DULoxetine HCL 30 MG CAPSULE.DR (CYMBALTA) PO SCH (09:23)
[2019-02-28] MEDS ORDERED: POTASSIUM CHLORIDE 20 MEQ TAB.PRT.SR PO ONE (10:30)
[2019-02-28] MEDS: FOLIC ACID 1 MG, MVI 10 ML in NACL 0.9% 1,000 ML IV SCH (10:38)
--- NOTE | 2019-02-28 10:38 | NUR ---
BANANA BAG HANG Patient resting in the bed. No acute distress. Continue on O2 via NC. Banana bag hang at this time. Safety measure maintained. Bed in low position, padded side rails up, bed alarm on. Call light within reached. Continue to monitor.
[2019-02-28] MEDS: METOPROLOL SUCCINATE 25 MG TAB.SR.24H (TOPROL XL) PO SCH (10:44)
--- NOTE | 2019-02-28 10:45 | NUR ---
SEEN AND EXAMINED BY BEE PINZON WITH ORDER RECEIVED.
--- NOTE | 2019-02-28 11:46 | NUR ---
CONSULTATION PAGED/CALLED Reason for Consultation: [facility] Person Who was Notified: SPOKE TO MELISA FROM OFFICE. Consulting Physician: Claims Configuration Analyst Specialty: PULMONARY Ordering Physician:
[2019-02-28 12:00] VITALS: BP_SYST 120
--- NOTE | 2019-02-28 12:17 | NUR ---
SS Note: TRANSMISSION OPERATOR met with pt for assessment and hx of ETOH and mental health. TRANSMISSION OPERATOR met with pt at bedside. Verified demographic information. Pt states he came in via ED after a fall (in which he does not remember) and pneumonia. Pt states he has been binge drinking for 2 days straight and might be the cause of the fall. Pt states he is independent with his ADL's, but uses a cane to go around the community. Pt states he owns a cane, wheelchair and walker at home. pt states he lives in a 2 iona home, with all the bedrooms upstairs. Pt states he utilizes an extra bedroom and bathroom downstairs. Pt states there are no steps to get to the front door. Pt states he has a history of depression and anxiety, and sees Dr. Huitron every other . Pt states he has been seeing her for more than a year now. Pt states his depression started when his was diagnosed with Alzheimer and at the same time, he lost his 2 dogs. Pt states his lives at [facility] for a year now and sees her "sometimes" because "people always tell me not to visit her because everytime I do, I get depressed". Pt states he binge drinks wine every few months and this time he binged on wine for 2 days. His trigger this time is seeing his very happy for her birthday democrat and few days after started becoming violent + a loss of a motion picture film examiner friend. Pt denies suicidal ideation, but had a history of giving up at some point but found support from his sons, pastor Dub[employer] and his nondenominational: [facility]. Pt states he has a good relationship with his 2 sons, one of them lives with him and the other visits him 2x a week. Pt states he gets lectures by his son Evangelista, but prefers that than being ignored by him. Pt states in July 2018, he was at [facility] 21 day rehab program, but is unable to do that now due to the his toe that is currently still on treatment. Pt states he has a history of opiate addiction but has recovered and refuses to take any opiate now. Pt states his mother was an alcoholic and is trying to kick the habit. Pt states he is interested again in going to rehab once his medical needs are addressed. TRANSMISSION OPERATOR provided pt with Alzheimer Support Group list, Substance Abuse list and AA list. SS will remain available and follow up as needed.
--- NOTE | 2019-02-28 12:40 | NUR ---
RESTING Patient resting in the bed with eyes closed. No acute distress. Continue on O2 via NC. IV intact, IVF infusing well. Safety measure maintained. Call light within reached. Bed locked in low position, side rails up, bed alarm on. Continue to monitor.
--- NOTE | 2019-02-28 13:00 | NUR ---
PT SERVICE Patient ambulated in the hallway using walker with PT, tolerated well. No acute distress. Will continue to monitor.
--- NOTE | 2019-02-28 15:30 | NUR ---
BREATHING TREATMENT Patient receiving breathing treatment at this time. No acute distress. Safety measure maintained. Call light within reached. Continue to monitor.
[2019-02-28 16:55] VITALS: BP_SYST 116
--- NOTE | 2019-02-28 17:10 | NUR ---
RESTING Patient resting in the bed with eyes closed. No acute distress. Respiration even and unlabored. Continue on O2 2L/min via NC. IV intact, IVF infusing well. Safety measure maintained. Call light within reached. Bed locked in low position, side rails up, bed alarm on. Continue to monitor.
--- NOTE | 2019-02-28 17:11 | NUR ---
Dietitian Recommendations * Consider advance diet if/when medically appropriate (regular diet) CHU, RD Please refer to Nutrition Assessment for details. Addendum: 02/28/19 at [address] Amended: Links added.
--- NOTE | 2019-02-28 18:52 | NUR ---
CLOSING NOTE Patient resting in the bed. No acute distress. Respiration even and unlabored. On O2 2L/min via NC. Denied of pain. IV intact to RAC and LAC, no redness, no swelling, patent. On 1/2NS at 100ml/hr, infusing well. All needs met and attended. Safety measure maintained. Call light within reached. Bed locked in low position, padded side rails up, bed alarm on. Will endorse to night nurse.
[2019-03-01 00:24] VITALS: BP_SYST 134
[2019-03-01] MEDS: PIPERACILLIN/TAZO 3.375/DEX-IS 50 ML IV SCH ×5 (00:30→23:50)
[2019-03-01] MEDS: D5NS 1,000 ML IV SCH ×3 (01:03→23:50)
[2019-03-01] MEDS: IPRATROPIUM BROM 0.5 MG/2.5 ML VIAL.NEB (ATROVENT) INH SCH ×5 (03:00→20:18)
[2019-03-01] MEDS: ALBUTEROL SULFATE 0.083% 2.5 MG/3 ML VIAL.NEB INH SCH ×5 (03:00→20:17)
[2019-03-01] MEDS: ACETAMINOPHEN 325 MG TABLET PO PRN ×2 (06:18→21:28)
--- NOTE | 2019-03-01 07:32 | NUR ---
report given to ELIE RN using SBAR allowed time for questions pt AAO no acute changes noted
[2019-03-01 07:45] VITALS: BP_SYST 144
[2019-03-01 08:08] LABS: BASOPHILS % (AUTO) 0.5 % (0.0-2.0); EOSINOPHILS # (AUTO) 0.2 K/uL (0.0-0.4); EOSINOPHILS % (AUTO) 2.7 % (0.0-4.0); HEMATOCRIT 33.3 % (36-54); LYMPHOCYTES % (AUTO) 27.6 % (20.5-51.5); MEAN CORPUSCULAR HEMOGLOBIN 32 pg (27-31); MEAN CORPUSCULAR HGB CONC 33 % (32-36); MEAN CORPUSCULAR VOLUME 98 fL (79.0-98.0); MONOCYTES # (AUTO) 0.5 K/uL (0.0-1.0); MONOCYTES % (AUTO) 7.2 % (1.7-9.3); NEUTROPHILS # (AUTO) 4.6 K/uL (1.8-7.7); PLATELET COUNT (AUTO) 165 K/uL (130-430); RED BLOOD CELL COUNT(AUTO) 3.41 MIL/uL (4.2-6.2); RED CELL DISTRIBUTION WIDTH 14.5 % (9.0-15.0); WHITE BLOOD COUNT (AUTO) 7.3 K/uL (4.8-10.8)
[2019-03-01 08:28] LABS: ALBUMIN 2.5 g/dL (3.4-4.8); CALCIUM 7.2 mg/dL (8.4-11.0); CREATININE 0.72 mg/dL (0.55-1.30); POTASSIUM 4.3 mmol/L (3.5-5.1); TOTAL BILIRUBIN 0.5 mg/dL (0.0-1.0)
[2019-03-01] MEDS: THIAMINE HCL IV SCH (08:43)
[2019-03-01] MEDS: MAGNESIUM SULFATE IV SCH (08:43)
[2019-03-01] MEDS: D5W IV SCH (08:43)
[2019-03-01] MEDS: METOPROLOL SUCCINATE 25 MG TAB.SR.24H (TOPROL XL) PO SCH (08:44)
[2019-03-01] MEDS: ATORVASTATIN 20 MG TABLET PO SCH (08:44)
[2019-03-01] MEDS: SUCRALFATE 1 GM TABLET PO SCH (08:44)
[2019-03-01] MEDS: DULoxetine HCL 30 MG CAPSULE.DR (CYMBALTA) PO SCH (08:44)
[2019-03-01] MEDS: GABAPENTIN 400 MG CAPSULE PO SCH ×3 (08:45→21:27)
[2019-03-01] MEDS: chlordiazePOXIDE HCL 25 MG CAPSULE PO SCH ×3 (08:45→21:27)
[2019-03-01] MEDS: ASPIRIN 81 MG TAB.CHEW PO SCH (08:45)
[2019-03-01] MEDS: PANTOPRAZOLE SODIUM 40 MG TAB PO SCH (08:45)
[2019-03-01] MEDS: LOSARTAN POTASSIUM 25 MG TABLET PO SCH (08:45)
[2019-03-01] MEDS: BACLOFEN 10 MG TABLET PO SCH ×2 (08:45→21:27)
--- NOTE | 2019-03-01 08:48 | NUR ---
AM SCHEDULE GIVEN Patient resting in the bed. No acute distress. AM schedule med given as ordered., tolerated well. Safety measure maintained. Call light within reached. Bed locked in low position, side rails up, bed alarm on. Continue to monitor.
[2019-03-01] MEDS: FOLIC ACID 1 MG TABLET PO SCH (09:00)
[2019-03-01] MEDS: FOLIC ACID 1 MG, MVI 10 ML in NACL 0.9% 1,000 ML IV SCH (10:14)
--- NOTE | 2019-03-01 11:22 | NUR ---
Colors Custodian: BISQUE GRADER met with Pt. at bedside to inquiry regarding if he has any preference regarding SNF. Pt. stated that he did not have a preference as he had not been to one prior, however, he reported that he was previously at [facility] for PT in the past and was familiar with that facility. BISQUE GRADER indicated that this info would be relayed to CM/DC naval surface fire support planner. H ewas open and agreeable to exploring other options. No further questions or concerns. Info relayed to CM /DC team.
--- NOTE | 2019-03-01 11:44 | NUR ---
EP=151 No insulin coverage needed per sliding scale per sliding scale.
[2019-03-01 12:06] VITALS: BP_SYST 113
--- NOTE | 2019-03-01 16:00 | NUR ---
ROUND Patient resting in the bed and watching TV. No acute distress. Continue on O2 via NC. IV intact, IVF infusing well. Safety measure maintained. Call light within reached. Bed locked in low position, side rails up, bed alarm on. Continue to monitor.
[2019-03-01 16:47] VITALS: BP_SYST 120
--- NOTE | 2019-03-01 18:39 | NUR ---
BB=[id number] No insulin coverage needed per sliding scale per sliding scale.
[2019-03-01 20:17] VITALS: BP_SYST 131
--- NOTE | 2019-03-01 22:00 | NUR ---
TYLENOL 650 MG PO administer for general pain 09/10 and helpful per patient .
--- NOTE | 2019-03-01 22:28 | NUR ---
side Rails padded SEIZURE precautions in place , patient awake alert FALL MEASURES noted bed alarm / .
--- NOTE | 2019-03-01 22:30 | NUR ---
BACLOFEN 10 MG PO administer for muscle spasm & helpful .
[2019-03-02 00:46] VITALS: BP_SYST 116
--- NOTE | 2019-03-02 02:44 | NUR ---
Reposition & Turning off loading with pillows encouraged patient awake alert HOB elevated side Rails padded for seizure precautions call medley with patient .
--- NOTE | 2019-03-02 05:09 | NUR ---
Patient awake using urinal as needed HOB elevated Hx of DIABETES no hypoglycemic reaction noted call medley with patient .
[2019-03-02] MEDS: PIPERACILLIN/TAZO 3.375/DEX-IS 50 ML IV SCH ×3 (06:14→17:13)
[2019-03-02] MEDS: PANTOPRAZOLE SODIUM 40 MG TAB PO SCH (06:15)
[2019-03-02] MEDS: ALBUTEROL SULFATE 0.083% 2.5 MG/3 ML VIAL.NEB INH SCH ×3 (07:39→15:38)
[2019-03-02] MEDS: IPRATROPIUM BROM 0.5 MG/2.5 ML VIAL.NEB (ATROVENT) INH SCH ×3 (07:39→15:39)
[2019-03-02] MEDS: THIAMINE HCL IV SCH (08:29)
[2019-03-02] MEDS: D5W IV SCH (08:29)
[2019-03-02] MEDS: MAGNESIUM SULFATE IV SCH (08:29)
[2019-03-02] MEDS: GABAPENTIN 400 MG CAPSULE PO SCH ×2 (08:38→15:12)
[2019-03-02] MEDS: DULoxetine HCL 30 MG CAPSULE.DR (CYMBALTA) PO SCH (08:38)
[2019-03-02] MEDS: chlordiazePOXIDE HCL 25 MG CAPSULE PO SCH ×2 (08:38→15:12)
[2019-03-02] MEDS: SUCRALFATE 1 GM TABLET PO SCH (08:39)
[2019-03-02] MEDS: ATORVASTATIN 20 MG TABLET PO SCH (08:39)
[2019-03-02] MEDS: BACLOFEN 10 MG TABLET PO SCH (08:39)
[2019-03-02] MEDS: FOLIC ACID 1 MG TABLET PO SCH (08:39)
[2019-03-02] MEDS: ASPIRIN 81 MG TAB.CHEW PO SCH (08:39)
[2019-03-02] MEDS: METOPROLOL SUCCINATE 25 MG TAB.SR.24H (TOPROL XL) PO SCH (08:44)
[2019-03-02] MEDS: LOSARTAN POTASSIUM 25 MG TABLET PO SCH (08:45)
[2019-03-02 08:46] VITALS: BP_SYST 132
--- NOTE | 2019-03-02 09:42 | NUR ---
Mobility/skin care comfort Up with the physical therapy using FWW on room air no shortness of breath walked to hallway tolerates well with out dizziness left side rib hurt if turned fast/coughing but tolerable as verbalized , back to bed complete TSB back rub done no pressure sore skin intact ,beddings changed , kept on fall safety and seizure precaution.
[2019-03-02] MEDS: FOLIC ACID 1 MG, MVI 10 ML in NACL 0.9% 1,000 ML IV SCH (10:01)
--- NOTE | 2019-03-02 11:20 | NUR ---
Discharge Planning: DCP faxed pt referral to [facility] p [phone]) DCP to follow up. Addendum: 03/02/19 at 1544 by Promise Boss DP [facility] (f [phone] p [phone]) accept to [facility] Addendum: 03/02/19 at 1651 by Promise Boss DP [facility] p [phone]) 7B, [place] ([phone]) 7:00pm P/U packet to nurse station.
[2019-03-02 11:23] VITALS: BP_SYST 141
--- NOTE | 2019-03-02 13:00 | NUR ---
DC Planning: Per dr. Link, he spoke with pt about transferring to snf: the pt agreed transferring to [facility]. -- alexei Virgen made aware.
[2019-03-02 16:15] VITALS: BP_SYST 130
[2019-03-02 16:37] VITALS: BP_SYST 150
--- NOTE | 2019-03-02 17:55 | NUR ---
Patient is going to [facility] room 7B ,acknowledgement of transfer given by the patient , report given to CARLOS Nunn with all the information, pecan picker time 1900 hours via ambulance.
--- NOTE | 2019-03-02 18:13 | NUR ---
PHYSICAL THERAPY CO-SIGN The Physical Therapy Progress Notes documented by Farm Machine Operator have been reviewed. Reviewed/Co-Signed by: Radha Morley PT Documentation Done by:MART GARCIA AUTOMOTIVE PARTS ADVISOR Addendum: 03/02/19 at 1814 by Radha Morley PT Amended: Links added.
--- NOTE | 2019-03-02 19:10 | NUR ---
Discharged to [facility] via ambulance with all the belongings taken accompanied by the son Edwin, patient alert/oriented x4 , able to walked to [facility] no dizziness.
[2019-03-02] MEDS ORDERED: chlordiazePOXIDE HCL 25 MG CAPSULE PO SCH (21:00)
== END 2019-03-02 19:17 | DRG 871 ==
LOC: SED 19:57 → SMU 23:43
PROVIDERS: ADMIT Internal Medicine Hospice and Palliative Medicine; ATTEND Internal Medicine Hospice and Palliative Medicine
DX: A41.9 Sepsis, unspecified organism (principal); J69.0 Pneumonitis due to inhalation of food and vomit; S22.42XA Multiple fractures of ribs, left side, initial encounter for closed fracture; F10.239 Alcohol dependence with withdrawal, unspecified; F10.229 Alcohol dependence with intoxication, unspecified; I10 Essential (primary) hypertension; M19.90 Unspecified osteoarthritis, unspecified site; W18.39XA Other fall on same level, initial encounter; K22.8 Other specified diseases of esophagus; E11.42 Type 2 diabetes mellitus with diabetic polyneuropathy; Z79.4 Long term (current) use of insulin; Z79.899 Other long term (current) drug therapy; Z79.82 Long term (current) use of aspirin; Y93.89 Activity, other specified; Y92.89 Other specified places as the place of occurrence of the external cause; Y99.8 Other external cause status
CPT/HCPCS: 36415; 36600; 71045; 71250-TC; 80053; 82803-TC; 82962; 83605; 85025; 87040-TC; 93005; 94640; 94760; 96365; 96375; 96376; 97116-GP; 97530-GP; 99285; G0480; G0481; G0482; J1815; J1885; J2060; J2405; J2543; J3411; J3475; J3490; J7030; J7042; J7613; J7620

== ENCOUNTER 2023-08-23 15:29 | Inpatient (IN) | payer OTHER, MEDICARE ==
[~2023-08-23] VITALS: Ht 172.7 cm; Wt 87.1 kg
[~2023-08-23 15:29] MED LIST changes: -DULO60CA41 PO; +DULO60CA42 PO; +LOSA-412 PO; -LOSA25TA3 PO; -OMEP20CA10 PO; +OMEP20CA15 PO; -ROSU10TA PO; +ROSU10TA2 PO; +SUCR1TAB2 PO; -SUCR1TAB78 PO
[2023-08-23 16:28] VITALS: BP_SYST 92; PULSE 88; RESP 18; TEMP 98.7; O2SAT 96
[2023-08-23 17:13] LABS: BASOPHILS % (AUTO) 0.2 % (0.0-2.0); EOSINOPHILS # (AUTO) 0.3 K/uL (0.0-0.4); HEMATOCRIT 35.2 % (36-54); HEMOGLOBIN 11.8 g/dL (14.0-18.0); LYMPHOCYTES % (AUTO) 20.7 % (20.5-51.5); MEAN CORPUSCULAR HEMOGLOBIN 32 pg (27-31); MEAN CORPUSCULAR HGB CONC 34 % (32-36); MEAN CORPUSCULAR VOLUME 97 fL (79.0-98.0); MONOCYTES # (AUTO) 0.1 K/uL (0.0-1.0); MONOCYTES % (AUTO) 0.7 % (1.7-9.3); NEUTROPHILS # (AUTO) 7.2 K/uL (1.8-7.7); NEUTROPHILS % (AUTO) 75.4 % (40.0-70.0); PLATELET COUNT (AUTO) 193 K/uL (130-430); RED BLOOD CELL COUNT(AUTO) 3.64 MIL/uL (4.2-6.2); RED CELL DISTRIBUTION WIDTH 13.9 % (9.0-15.0); WHITE BLOOD COUNT (AUTO) 9.5 K/uL (4.8-10.8)
[2023-08-23] MEDS: ACETAMINOPHEN 500 MG TABLET PO ONE (17:30)
[2023-08-23] MEDS: DEXAMETHASONE SOD PHOSPHATE 10 MG/ML VIAL PO ONE (17:30)
[2023-08-23 17:31] LABS: ANION GAP 7 (5-15); CALCIUM 9.4 mg/dL (8.4-11.0); CARBON DIOXIDE 30 mmol/L (23-29); CHLORIDE 102 mmol/L (98-107); CREATININE 1.28 mg/dL (0.55-1.30); GLUCOSE 93 mg/dL (74-106); POTASSIUM 5.2 mmol/L (3.5-5.1); SODIUM SERUM 139 mmol/L (136-145); UREA NITROGEN, BLOOD 22 mg/dL (8-21)
[2023-08-23] MEDS ORDERED: DEXAMETHASONE SOD PHOSPHATE 10 MG/ML VIAL ONE (21:37)
[2023-08-23] MEDS ORDERED: ACETAMINOPHEN 500 MG TABLET ONE (21:38)
[2023-08-23] MEDS ORDERED: iohexoL 300 mgI/mL, 150 ML INFUS..BTL IV ONE (22:15)
[2023-08-24] MEDS: PIPERACILLIN/TAZO 3.375 GM in NS 50 ML IV ONE (01:00)
[2023-08-24] MEDS: ACETAMINOPHEN 500 MG TABLET PO ONE (02:10)
[2023-08-24 02:15] LABS: ANION GAP 10 (5-15); CALCIUM 8.5 mg/dL (8.4-11.0); CARBON DIOXIDE 22 mmol/L (23-29); CHLORIDE 102 mmol/L (98-107); CREATININE 0.97 mg/dL (0.55-1.30); GLUCOSE 176 mg/dL (74-106); POTASSIUM 5.4 mmol/L (3.5-5.1); SODIUM SERUM 134 mmol/L (136-145); UREA NITROGEN, BLOOD 22 mg/dL (8-21)
[2023-08-24 02:19] LABS: COVID19 ANTIGEN SOFIA FIA NEGATIVE (NEGATIVE)
[2023-08-24] MEDS ORDERED: PIPERACILLIN/TAZOBACTAM 3.375 GM/VIAL (ZOSYN) IV ONE (02:19)
[2023-08-24 02:23] LABS: INFLUENZA TYPE A NEGATIVE (NEGATIVE); INFLUENZA TYPE B NEGATIVE (NEGATIVE); STREPTOCOCCUS A SCREEN (RAPID) NEGATIVE (NEGATIVE)
[2023-08-24] MEDS: ALBUTEROL SULFATE 0.083% 2.5 MG/3 ML VIAL.NEB INH ONE (03:40)
[2023-08-24] MEDS: CALCIUM GLUCONATE 1 GM/10 ML VIAL IVP ONE (03:58)
[2023-08-24] MEDS: SODIUM BICARBONATE 8.4% JECT 50 MEQ/50 ML SYRINGE IVP ONE (03:59)
[2023-08-24] MEDS: D5/0.45 NS 1,000 ML IV SCH (03:59)
[2023-08-24] MEDS: INSULIN REGULAR, HUMAN 10 UNITS/0.1 ML, 3 ML VIAL IVP ONE (04:01)
[2023-08-24 08:44] LABS: HEMATOCRIT 34.5 % (36-54); HEMOGLOBIN 11.5 g/dL (14.0-18.0); LYMPHOCYTES # (AUTO) 0.4 K/uL (1.0-5.5); LYMPHOCYTES % (AUTO) 6.9 % (20.5-51.5); MEAN CORPUSCULAR HEMOGLOBIN 32 pg (27-31); MEAN CORPUSCULAR HGB CONC 33 % (32-36); MEAN CORPUSCULAR VOLUME 96 fL (79.0-98.0); MONOCYTES % (AUTO) 0.3 % (1.7-9.3); NEUTROPHILS % (AUTO) 92.8 % (40.0-70.0); PLATELET COUNT (AUTO) 161 K/uL (130-430); RED BLOOD CELL COUNT(AUTO) 3.58 MIL/uL (4.2-6.2); RED CELL DISTRIBUTION WIDTH 14.1 % (9.0-15.0)
[2023-08-24 08:45] LABS: WHITE BLOOD COUNT (AUTO) 5.4 K/uL (4.8-10.8)
[2023-08-24 08:56] LABS: ANION GAP 10 (5-15); CALCIUM 9.2 mg/dL (8.4-11.0); CARBON DIOXIDE 28 mmol/L (23-29); CHLORIDE 102 mmol/L (98-107); CREATININE 1.15 mg/dL (0.55-1.30); GLUCOSE 247 mg/dL (74-106); POTASSIUM 4.7 mmol/L (3.5-5.1); SODIUM SERUM 140 mmol/L (136-145); UREA NITROGEN, BLOOD 24 mg/dL (8-21)
[2023-08-24 09:01] LABS: ALANINE AMINOTRANSFERASE 57 U/L (12-78); ALBUMIN 2.9 g/dL (3.4-4.8); ASPARTATE AMINOTRANSFERASE 25 U/L (10-37); TOTAL BILIRUBIN 0.3 mg/dL (0.0-1.0); TOTAL PROTEIN, SERUM 6.7 g/dL (6.4-8.3)
[2023-08-24] MEDS ORDERED: METH-634 PO (10:20)
[2023-08-24] MEDS ORDERED: POTA8TAB66 PO (10:20)
[2023-08-24] MEDS ORDERED: TAMS-11 PO (10:20)
[2023-08-24 11:21] VITALS: BP_SYST 129; PULSE 98; RESP 20; TEMP 98.1; O2SAT 98
[2023-08-24] MEDS ORDERED: THIA100T73 PO (12:24)
[2023-08-24] MEDS ORDERED: GABA-534 PO (12:30)
[2023-08-24] MEDS ORDERED: BUSP15TA3 PO (12:30)
[2023-08-24] MEDS ORDERED: METO50TA7 PO (12:30)
[2023-08-24] MEDS ORDERED: METH2.5T PO (12:32)
[2023-08-24] MEDS ORDERED: PIPERACILLIN/TAZO 3.375 GM in NS 50 ML IV SCH (14:00)
[2023-08-24] MEDS: PIPERACILLIN/TAZO 3.375 GM in NS 50 ML IV SCH (14:36)
[2023-08-24 16:00] VITALS: BP_SYST 122; PULSE 74; RESP 20; TEMP 98
[2023-08-24 17:33] LABS: PROTHROMBIN TIME 10.3 SECS (9.5-12.5)
[2023-08-24 19:00] VITALS: BP_SYST 126; PULSE 88; RESP 16; TEMP 98.2; O2SAT 98
[2023-08-24 20:00] VITALS: BP_SYST 126; PULSE 88; RESP 16; TEMP 98.2; O2SAT 98
[2023-08-24 22:10] LABS: BILIRUBIN,URINE NEGATIVE (NEGATIVE); BLOOD, URINE NEGATIVE (NEGATIVE); CLARITY/URINE CLEAR (CLEAR); COLOR,URINE YELLOW (YELLOW); GLUCOSE,URINE NEGATIVE (NEGATIVE); KETONES,URINE NEGATIVE (NEGATIVE); LEUKOCYTE ESTERASE ,URINE NEGATIVE (NEGATIVE); NITRITE, URINE NEGATIVE (NEGATIVE); PROTEIN URINE NEGATIVE (NEGATIVE); UROBILINOGEN,URINE 0.2 (0.2-1.0)
[2023-08-24] MEDS: fentaNYL CITRATE/PF 100 MCG/2 ML AMP ONE (22:48)
[2023-08-24] MEDS ORDERED: PROPOFOL 200MG/ 20ML VIAL (DIPRIVAN) IV ONE (22:53)
[2023-08-24] MEDS ORDERED: BUPIVACAINE /PF 0.25% 30 ML VIAL INJ ONE (22:53)
[2023-08-24] MEDS ORDERED: PHENYLEPHRINE HCL 10 MG/ML VIAL (NEOSYNEPHRINE) ONE (22:53)
[2023-08-24] MEDS ORDERED: LR 1,000 ML IV.SOLN IV ONE (22:53)
[2023-08-24] MEDS ORDERED: NS IRRIG SOLN 1000 ML IR ONE (22:53)
[2023-08-24] MEDS ORDERED: SEVOFLURANE 15 MIN GAS INH ONE (22:53)
[2023-08-24] MEDS ORDERED: SUGAMMADEX SODIUM 200 MG/2 ML VIAL IV ONE (22:53)
[2023-08-24] MEDS ORDERED: WATER FOR IRRIGATION,STERILE 1,000 ML IRRIG.SOLN IR ONE (22:53)
[2023-08-24] MEDS ORDERED: ROCURONIUM BROMIDE 10 MG/ML (ZEMURON) ONE (22:53)
[2023-08-24] MEDS ORDERED: ONDANSETRON HCL 4 MG/2 ML VIAL ONE (22:53)
[2023-08-24] MEDS: ACETAMINOPHEN I.V. 1000 MG 100 ML IV ONE (22:55)
[2023-08-24] MEDS: MIDAZOLAM HCL 2 MG/2 ML VIAL (VERSED) ONE (22:55)
[2023-08-24] MEDS: LR 1,000 ML IV ONE (22:56)
[2023-08-24] MEDS ORDERED: NALOXONE HCL 0.4 MG/ML AMP (NARCAN) IVP PRN (23:30)
[2023-08-24] MEDS ORDERED: HYDROmorphone 1 MG/ML INJ. CARTRIDGE IVP PRN (23:30)
[2023-08-24] MEDS ORDERED: fentaNYL CITRATE/PF 100 MCG/2 ML AMP IVP PRN (23:30)
[2023-08-25] MEDS: ONDANSETRON HCL 4 MG/2 ML VIAL IVP PRN (00:40)
[2023-08-25] MEDS: fentaNYL CITRATE/PF 100 MCG/2 ML AMP IVP PRN (00:40)
[2023-08-25] MEDS ORDERED: ACETAMINOPHEN 500 MG TABLET PO PRN (01:30)
[2023-08-25] MEDS ORDERED: NALOXONE HCL 0.4 MG/ML AMP (NARCAN) IVP PRN ×2 (02:45)
[2023-08-25] MEDS ORDERED: MORPHINE 2 MG/ML INJ. SYRINGE IVP PRN (02:45)
[2023-08-25] MEDS: LORazepam 2 MG/ML VIAL IVP PRN (03:26)
[2023-08-25 07:53] VITALS: BP_SYST 163; PULSE 109; RESP 18; TEMP 97.4; O2SAT 97
[2023-08-25] MEDS: ACETAMINOPHEN 325 MG TABLET PO PRN (08:06)
[2023-08-25 11:30] VITALS: BP_SYST 144; PULSE 112; RESP 18; TEMP 97; O2SAT 94
[2023-08-25 14:59] VITALS: BP_SYST 163; PULSE 109; RESP 20; TEMP 97.3; O2SAT 97
[2023-08-25] MEDS ORDERED: BENZOCAINE/MENTHOL 1 EACH LOZENGE MM PRN (15:00)
[2023-08-25 16:25] VITALS: BP_SYST 140; PULSE 100; RESP 18; TEMP 97.6; O2SAT 94
[2023-08-25] MEDS: methocarbamoL 500 MG TABLET PO PRN (18:56)
[2023-08-25] MEDS: BACLOFEN 10 MG TABLET PO SCH (21:11)
[2023-08-25] MEDS: GABAPENTIN 400 MG CAPSULE PO SCH (21:12)
[2023-08-25] MEDS: fentaNYL CITRATE/PF 100 MCG/2 ML AMP ONE (22:56)
[2023-08-25] MEDS: ONDANSETRON HCL 4 MG/2 ML VIAL ONE (22:56)
[2023-08-26 02:22] VITALS: O2SAT 95
[2023-08-26 04:02] VITALS: BP_SYST 142; PULSE 75; RESP 18; TEMP 98.3; O2SAT 75
[2023-08-26 06:13] LABS: BASOPHILS % (AUTO) 0.4 % (0.0-2.0); EOSINOPHILS # (AUTO) 0.2 K/uL (0.0-0.4); EOSINOPHILS % (AUTO) 4.4 % (0.0-4.0); HEMATOCRIT 27.8 % (36-54); HEMOGLOBIN 9.4 g/dL (14.0-18.0); LYMPHOCYTES # (AUTO) 2.1 K/uL (1.0-5.5); LYMPHOCYTES % (AUTO) 48.1 % (20.5-51.5); MEAN CORPUSCULAR HEMOGLOBIN 33 pg (27-31); MEAN CORPUSCULAR HGB CONC 34 % (32-36); MEAN CORPUSCULAR VOLUME 97 fL (79.0-98.0); MONOCYTES # (AUTO) 0.1 K/uL (0.0-1.0); MONOCYTES % (AUTO) 2.5 % (1.7-9.3); NEUTROPHILS # (AUTO) 1.9 K/uL (1.8-7.7); NEUTROPHILS % (AUTO) 44.6 % (40.0-70.0); PLATELET COUNT (AUTO) 122 K/uL (130-430); RED BLOOD CELL COUNT(AUTO) 2.88 MIL/uL (4.2-6.2); RED CELL DISTRIBUTION WIDTH 13.8 % (9.0-15.0); WHITE BLOOD COUNT (AUTO) 4.3 K/uL (4.8-10.8)
[2023-08-26 06:34] LABS: ALANINE AMINOTRANSFERASE 50 U/L (12-78); ALBUMIN 2.6 g/dL (3.4-4.8); ANION GAP 8 (5-15); ASPARTATE AMINOTRANSFERASE 21 U/L (10-37); CALCIUM 8.7 mg/dL (8.4-11.0); CARBON DIOXIDE 30 mmol/L (23-29); CHLORIDE 105 mmol/L (98-107); CREATININE 0.95 mg/dL (0.55-1.30); GLUCOSE 113 mg/dL (74-106); POTASSIUM 3.7 mmol/L (3.5-5.1); SODIUM SERUM 143 mmol/L (136-145); TOTAL BILIRUBIN 0.3 mg/dL (0.0-1.0); TOTAL PROTEIN, SERUM 5.9 g/dL (6.4-8.3); UREA NITROGEN, BLOOD 13 mg/dL (8-21)
[2023-08-26 08:00] VITALS: BP_SYST 155; PULSE 100; RESP 16; TEMP 97.8; O2SAT 96
[2023-08-26] MEDS ORDERED: ROSUVASTATIN CALCIUM 5 MG/TAB (CRESTOR) PO SCH (09:00)
[2023-08-26] MEDS ORDERED: OMEPRAZOLE Non-Formulary 20 MG CAPSULE.DR PO SCH (09:00)
[2023-08-26] MEDS: ATORVASTATIN 20 MG TABLET PO SCH (09:59)
[2023-08-26] MEDS: LOSARTAN POTASSIUM 25 MG TABLET PO SCH (10:00)
[2023-08-26] MEDS: TAMSULOSIN HCL 0.4 MG CAP PO SCH (10:00)
[2023-08-26] MEDS: FOLIC ACID 1 MG TABLET PO SCH (10:01)
[2023-08-26] MEDS: busPIRone HCL 5 MG TABLET PO SCH (10:01)
[2023-08-26] MEDS: PANTOPRAZOLE SODIUM 40 MG TAB PO SCH (10:01)
[2023-08-26] MEDS: METOPROLOL SUCCINATE 50 MG TAB.SR.24H (TOPROL XL) PO SCH (10:02)
[2023-08-26] MEDS: THIAMINE HCL 100 MG TABLET PO SCH (10:02)
[2023-08-26] MEDS: DULoxetine HCL 30 MG CAPSULE.DR (CYMBALTA) PO SCH (10:02)
[2023-08-26] MEDS: ASPIRIN 81 MG TAB.CHEW PO SCH (10:03)
[2023-08-26 11:32] VITALS: BP_SYST 148; PULSE 113; RESP 18; TEMP 97.9; O2SAT 98
[2023-08-26 15:31] VITALS: BP_SYST 118; PULSE 82; RESP 18; TEMP 98.2; O2SAT 97
[2023-08-26 20:05] VITALS: BP_SYST 100; PULSE 70; RESP 20; TEMP 98.1; O2SAT 96
[2023-08-27 00:05] VITALS: BP_SYST 112; PULSE 76; RESP 20; TEMP 97.8; O2SAT 98
[2023-08-27] MEDS: MORPHINE 2 MG/ML INJ. SYRINGE IVP PRN (02:45)
[2023-08-27 07:59] VITALS: BP_SYST 133; PULSE 89; RESP 19; TEMP 97.8; O2SAT 97
[2023-08-27 08:30] VITALS: O2SAT 96
[2023-08-27] MEDS ORDERED: IBUP-1969 PO (10:15)
[2023-08-27] MEDS ORDERED: AMOX500C2 PO (10:15)
[2023-08-27 11:13] VITALS: BP_SYST 112; PULSE 79; RESP 17; TEMP 97.4; O2SAT 96
[2023-08-27 12:03] VITALS: BP_SYST 112; PULSE 79; RESP 18; TEMP 97.4; O2SAT 96
== END 2023-08-27 14:15 | disposition home or self-care (01) | DRG 330 ==
LOC: SED 15:29 → STU 08-24 03:21
PROVIDERS: ADMIT Internal Medicine; ATTEND Internal Medicine
PROC: 0DBH4ZZ Excision of Cecum, Percutaneous Endoscopic Approach (ICD-10-PCS; 2023-08-24)
PROC: 0DTJ4ZZ Resection of Appendix, Percutaneous Endoscopic Approach (ICD-10-PCS; principal; 2023-08-24 22:53)
DX: K35.80 Unspecified acute appendicitis (principal); E44.1 Mild protein-calorie malnutrition; E11.42 Type 2 diabetes mellitus with diabetic polyneuropathy; E87.5 Hyperkalemia; M17.12 Unilateral primary osteoarthritis, left knee; E78.5 Hyperlipidemia, unspecified; N40.0 Benign prostatic hyperplasia without lower urinary tract symptoms; Z20.822 Contact with and (suspected) exposure to COVID-19; M06.9 Rheumatoid arthritis, unspecified; Z96.651 Presence of right artificial knee joint; G89.4 Chronic pain syndrome; J02.9 Acute pharyngitis, unspecified; I10 Essential (primary) hypertension; Z79.82 Long term (current) use of aspirin; Z79.84 Long term (current) use of oral hypoglycemic drugs; Z79.899 Other long term (current) drug therapy; Z68.31 Body mass index [BMI] 31.0-31.9, adult; R06.03 Acute respiratory distress
CPT/HCPCS: 36415; 70491; 71045; 71275; 72191; 74175; 80048; 80053; 81001; 81003; 82948; 83880; 84484; 85025; 85610; 85730; 86403; 87040; 87081; 88304; 93005; 93306; 94640; 96365; 97110-GP; 97116-GP; 97530-GP; 99291; C1727; G0378; G0482; J0131; J0610; J1100; J1815; J2060; J2270; J2370; J2405; J2543; J2704; J3010; J3465; J3490; J7060; J7120; Q9967